=== PATIENT | female | born 1945 | race Hispanic/Latino ===

== ENCOUNTER → 2018-05-01 | Outpatient (CLI) | payer OTHER ==
[~2018-05-01] MED LIST: AMLO5TAB5 PO; ASPI-1197 PO; BACL10TA PO; CA C1TAB95 PO; CANA1TAB4 PO; CETI10TA86 PO; GABA-531 PO; GLIM4TAB3 PO; LOSA50TA25 PO; MELO7.5O PO; METF-446 PO; MONT10TA21 PO; SIMV40TA59 PO; SITA100T12 PO; VITA1TAB22 PO; VITAMIN B12 PO; fluticasone NASAL; iron PO
== END | disposition home or self-care (01) ==
LOC: SHCH 12:59
PROVIDERS: ATTEND Internal Medicine Cardiovascular Disease
DX: R07.9 Chest pain, unspecified (principal)
CPT/HCPCS: 93306

== ENCOUNTER → 2018-11-08 | Outpatient (CLI) | payer OTHER ==
[~2018-11-08] MED LIST changes: -LOSA50TA25 PO; +LOSA50TA64 PO
== END | disposition home or self-care (01) ==
LOC: RAH 08:23
PROVIDERS: ATTEND Internal Medicine Cardiovascular Disease
DX: R07.9 Chest pain, unspecified (principal)
CPT/HCPCS: 93015; 93017

== ENCOUNTER → 2019-06-28 | Outpatient (CLI) | payer OTHER ==
[~2019-06-28] MED LIST changes: -GLIM4TAB3 PO; +GLIM4TAB36 PO
== END | disposition home or self-care (01) ==
LOC: SHCH 14:30
PROVIDERS: ATTEND Internal Medicine Cardiovascular Disease
DX: I35.8 Other nonrheumatic aortic valve disorders (principal); I10 Essential (primary) hypertension
CPT/HCPCS: 93306

== ENCOUNTER → 2019-11-24 | Outpatient (CLI) | payer OTHER | END | disposition home or self-care (01) | LOC: RAH 11:19 | PROVIDERS: ATTEND Internal Medicine | DX: Z01.818 Encounter for other preprocedural examination (principal); L72.3 Sebaceous cyst; I70.0 Atherosclerosis of aorta | CPT/HCPCS: 71046 ==

== ENCOUNTER → 2020-06-15 | Outpatient (CLI) | payer OTHER | END | disposition home or self-care (01) | LOC: RAH 10:53 | PROVIDERS: ATTEND Internal Medicine | DX: M47.812 Spondylosis without myelopathy or radiculopathy, cervical region (principal); M54.2 Cervicalgia; I70.0 Atherosclerosis of aorta | CPT/HCPCS: 72040 ==

== ENCOUNTER → 2020-06-22 | Outpatient (CLI) | payer OTHER | END | disposition home or self-care (01) | LOC: RAH 13:00 | PROVIDERS: ATTEND Internal Medicine | DX: I65.23 Occlusion and stenosis of bilateral carotid arteries (principal); R09.89 Other specified symptoms and signs involving the circulatory and respiratory systems | CPT/HCPCS: 93880 ==

== ENCOUNTER → 2020-07-12 | Outpatient (CLI) | payer OTHER | END | disposition home or self-care (01) | LOC: RAH 09:03 | PROVIDERS: ATTEND Internal Medicine Gastroenterology | DX: K76.0 Fatty (change of) liver, not elsewhere classified (principal); N28.1 Cyst of kidney, acquired | CPT/HCPCS: 76700 ==

== ENCOUNTER → 2020-08-10 | Outpatient (CLI) | payer OTHER | END | disposition home or self-care (01) | LOC: SHCH 13:18 | PROVIDERS: ATTEND Internal Medicine Cardiovascular Disease | DX: I87.2 Venous insufficiency (chronic) (peripheral) (principal) | CPT/HCPCS: 93970 ==

== ENCOUNTER → 2021-05-27 | Outpatient (CLI) | payer OTHER ==
[~2021-05-27] MED LIST changes: -CETI10TA86 PO; +CETI10TA87 PO
== END | disposition home or self-care (01) ==
LOC: SHCH 08:45
PROVIDERS: ATTEND Internal Medicine Cardiovascular Disease
DX: I35.0 Nonrheumatic aortic (valve) stenosis (principal); I51.7 Cardiomegaly; E78.5 Hyperlipidemia, unspecified; E11.9 Type 2 diabetes mellitus without complications; R55 Syncope and collapse
CPT/HCPCS: 93306; 93356

== ENCOUNTER → 2022-04-17 | Outpatient (CLI) | payer OTHER | END | disposition home or self-care (01) | LOC: RAH 08:40 | PROVIDERS: ATTEND Internal Medicine Gastroenterology | DX: K21.9 Gastro-esophageal reflux disease without esophagitis (principal); R12 Heartburn | CPT/HCPCS: 74240 ==

== ENCOUNTER 2022-05-06 21:18 | Emergency (ER) | payer OTHER ==
[~2022-05-06] VITALS: Ht 160 cm; Wt 59.9 kg
[2022-05-06 21:20] VITALS: BP 135/66
[2022-05-06] MEDS ORDERED: IBUP-1493 PO (21:43)
== END 2022-05-06 22:23 | disposition home or self-care (01) ==
LOC: EDH 21:18
DX: M19.09 Primary osteoarthritis, other specified site (principal); E11.9 Type 2 diabetes mellitus without complications; E78.00 Pure hypercholesterolemia, unspecified; I10 Essential (primary) hypertension; Z79.82 Long term (current) use of aspirin; Z79.899 Other long term (current) drug therapy; Z79.84 Long term (current) use of oral hypoglycemic drugs; Z98.890 Other specified postprocedural states

== ENCOUNTER → 2022-07-11 | Outpatient (CLI) | payer OTHER ==
[~2022-07-11] MED LIST changes: +IBUP-1493 PO
== END | disposition home or self-care (01) ==
LOC: SHCH 08:53
PROVIDERS: ATTEND Internal Medicine Cardiovascular Disease
DX: I35.0 Nonrheumatic aortic (valve) stenosis (principal); I11.9 Hypertensive heart disease without heart failure
CPT/HCPCS: 93306

== ENCOUNTER → 2022-07-20 | Outpatient (CLI) | payer OTHER | END | disposition home or self-care (01) | LOC: RAH 12:04 | PROVIDERS: ATTEND Clinical Nurse Specialist Family Health | DX: M17.12 Unilateral primary osteoarthritis, left knee (principal); M25.562 Pain in left knee; M25.551 Pain in right hip; M89.8X8 Other specified disorders of bone, other site | CPT/HCPCS: 72190; 73560 ==

== ENCOUNTER 2022-08-24 00:58 | Emergency (ER) | payer OTHER ==
[~2022-08-24] VITALS: Ht 160 cm; Wt 60.3 kg
[2022-08-24] MEDS ORDERED: DiphenhydrAMINE HCL 50 MG/ML VIAL IV STA (02:05)
[2022-08-24] MEDS ORDERED: ACETAMINOPHEN 325 MG TAB PO STA (02:05)
[2022-08-24] MEDS ORDERED: PROCHLORPERAZINE 10MG/2ML INJ IV STA (02:05)
[2022-08-24 03:30] LABS: BASOPHILS % (AUTO) 0.4 % (0.0-5.0); EOSINOPHILS % (AUTO) 2.8 % (0.0-8.0); HEMATOCRIT 39.3 % (36-48); LYMPHOCYTES % (AUTO) 44.1 % (21.0-51.0); MEAN CORPUSCULAR HGB CONC 34.1 g/dL (32.0-36.0); MEAN CORPUSCULAR VOLUME 85.1 fL (79-99); MONOCYTES % (AUTO) 7.9 % (3.0-13.0); NEUTROPHILS % (AUTO) 44.4 % (40.0-77.0); PLATELET COUNT (AUTO) 164 K/uL (130-400); RED BLOOD CELL COUNT(AUTO) 4.62 MIL/uL (4.00-5.50); RED CELL DISTRIBUTION WIDTH 12.3 % (11.0-15.5); WHITE BLOOD COUNT (AUTO) 5.7 K/uL (4.8-10.8)
[2022-08-24 03:36] LABS: APPEARANCE,URINE CLEAR (CLEAR); BILIRUBIN,URINE NEGATIVE (NEGATIVE); COLOR,URINE COLORLESS (YELLOW); GLUCOSE, URINE (UA) >=1000 mg/dL (NEGATIVE); KETONES,URINE 5 mg/dL (NEGATIVE); LEUKOCYTE ESTERASE ,URINE 250 Leu/uL (NEGATIVE); NITRATE,URINE NEGATIVE (NEGATIVE); OCCULT BLOOD,URINE NEGATIVE (NEGATIVE); PROTEIN,URINE NEGATIVE (NEGATIVE); UROBILINOGEN,URINE 0.2 mg/dL (0.2-1.0)
[2022-08-24 03:39] LABS: CREATININE 0.8 mg/dL (0.5-1.5); POTASSIUM 3.6 mmol/L (3.5-5.1)
[2022-08-24 03:42] LABS: MUCUS,URINE RARE LPF (None Seen); SQUAMOUS EPITHELIAL CELL,UR RARE /HPF (0-2)
[2022-08-24 03:44] LABS: ALBUMIN 4.1 g/dL (3.5-5.0); TOTAL PROTEIN, SERUM 7.6 g/dL (6.0-8.3)
[2022-08-24] MEDS ORDERED: CEFTRIAXONE 1G VIAL IVP STA (04:52)
[2022-08-24] MEDS ORDERED: CEPH500B PO (05:40)
[2022-08-24 06:18] VITALS: BP 139/71
== END 2022-08-24 06:32 | disposition home or self-care (01) ==
LOC: EDH 00:58
DX: N39.0 Urinary tract infection, site not specified (principal); E11.9 Type 2 diabetes mellitus without complications; E78.00 Pure hypercholesterolemia, unspecified; I10 Essential (primary) hypertension; Z60.2 Problems related to living alone; Z79.1 Long term (current) use of non-steroidal anti-inflammatories (NSAID); Z79.82 Long term (current) use of aspirin; Z79.84 Long term (current) use of oral hypoglycemic drugs; Z79.899 Other long term (current) drug therapy
CPT/HCPCS: 99285; 96374; 70450; 96375; 80053; 85025; 87088; 81001; 36415; J1200; J0780; J0696

== ENCOUNTER 2022-11-22 23:16 | Observation (INO) | payer OTHER ==
[~2022-11-22] VITALS: Ht 160 cm; Wt 61.2 kg
[~2022-11-22 23:16] MED LIST changes: +CEPH500B PO; +MONT-47 PO; -MONT10TA21 PO
[2022-11-23 00:23] LABS: APPEARANCE,URINE CLEAR (CLEAR); BILIRUBIN,URINE NEGATIVE (NEGATIVE); COLOR,URINE COLORLESS (YELLOW); GLUCOSE, URINE (UA) >=1000 mg/dL (NEGATIVE); KETONES,URINE 20 mg/dL (NEGATIVE); LEUKOCYTE ESTERASE ,URINE 250 Leu/uL (NEGATIVE); NITRATE,URINE NEGATIVE (NEGATIVE); OCCULT BLOOD,URINE NEGATIVE (NEGATIVE); PROTEIN,URINE NEGATIVE (NEGATIVE); UROBILINOGEN,URINE 0.2 mg/dL (0.2-1.0)
[2022-11-23 00:33] LABS: MUCUS,URINE RARE LPF (None Seen); SQUAMOUS EPITHELIAL CELL,UR RARE /HPF (0-2)
[2022-11-23 00:37] LABS: CREATININE 1.1 mg/dL (0.5-1.5); POTASSIUM 4.2 mmol/L (3.5-5.1)
[2022-11-23 00:41] LABS: ALBUMIN 3.8 g/dL (3.5-5.0)
[2022-11-23 00:46] LABS: BASOPHILS % (AUTO) 0.3 % (0.0-5.0); EOSINOPHILS % (AUTO) 0.3 % (0.0-8.0); HEMATOCRIT 32.3 % (36-48); LYMPHOCYTES % (AUTO) 16.8 % (21.0-51.0); MEAN CORPUSCULAR HEMOGLOBIN 27.8 pg (27.0-33.0); MEAN CORPUSCULAR HGB CONC 31.9 g/dL (32.0-36.0); MEAN CORPUSCULAR VOLUME 87.3 fL (79-99); MONOCYTES % (AUTO) 3.6 % (3.0-13.0); NEUTROPHILS % (AUTO) 78.6 % (40.0-77.0); PLATELET COUNT (AUTO) 212 K/uL (130-400); RED CELL DISTRIBUTION WIDTH 13.2 % (11.0-15.5); WHITE BLOOD COUNT (AUTO) 9.4 K/uL (4.8-10.8)
[2022-11-23] MEDS ORDERED: 0.9%NACL 1000ML 1,000 ML IV ONE (01:00)
[2022-11-23] MEDS ORDERED: CEFTRIAXONE 1G VIAL IVPB ONE (02:00)
[2022-11-23] MEDS ORDERED: 0.9% NACL 500ML IV.SOLN 500 ML IV ONE (02:22)
[2022-11-23] MEDS ORDERED: MORPHINE 4 MG SYG IV PRN (03:00)
[2022-11-23] MEDS ORDERED: ACETAMINOPHEN WITH CODEINE 1 TAB TAB PO PRN (03:00)
[2022-11-23] MEDS ORDERED: ACETAMINOPHEN 325 MG TAB PO PRN ×2 (03:00)
[2022-11-23] MEDS ORDERED: ONDANSETRON 4MG INJ IV PRN (03:00)
[2022-11-23] MEDS ORDERED: MAG/ALUM/SIMETH 30 ML UDCUP PO PRN (03:00)
[2022-11-23] MEDS ORDERED: CEFTRIAXONE 1G VIAL IVPB SCH ×2 (03:00→21:00)
[2022-11-23] MEDS ORDERED: 0.9%NACL 1000ML 2,000 ML IV ONE (03:00)
[2022-11-23] MEDS: 0.9%NACL 1000ML 1,000 ML IV SCH ×3 (03:13→23:00)
[2022-11-23] MEDS: INSULIN HUMULIN R 100 UNIT/ML 3ML SQ SCH ×4 (07:30→21:00)
[2022-11-23] MEDS ORDERED: ENOXAPARIN SODIUM 40 MG/0.4 ML SYRINGE SQ SCH (09:00)
[2022-11-23] MEDS: FAMOTIDINE 20MG VIAL IV SCH (09:14)
[2022-11-23 12:19] LABS: HEMATOCRIT 24.4 % (36-48); MEAN CORPUSCULAR HEMOGLOBIN 28.3 pg (27.0-33.0); MEAN CORPUSCULAR HGB CONC 32.8 g/dL (32.0-36.0); MEAN CORPUSCULAR VOLUME 86.2 fL (79-99); RED BLOOD CELL COUNT(AUTO) 2.83 MIL/uL (4.00-5.50); RED CELL DISTRIBUTION WIDTH 13.1 % (11.0-15.5); WHITE BLOOD COUNT (AUTO) 5.6 K/uL (4.8-10.8)
[2022-11-23 12:36] LABS: CREATININE 0.5 mg/dL (0.5-1.5); POTASSIUM 3.7 mmol/L (3.5-5.1)
[2022-11-23 12:46] LABS: ALBUMIN 3.1 g/dL (3.5-5.0); MAGNESIUM 1.7 mg/dL (1.80-2.40); TOTAL PROTEIN, SERUM 5.8 g/dL (6.0-8.3)
[2022-11-23 13:37] VITALS: BP 125/64
[2022-11-23 15:21] LABS: HEMATOCRIT 25.9 % (36-48); MEAN CORPUSCULAR HGB CONC 31.7 g/dL (32.0-36.0); MEAN CORPUSCULAR VOLUME 88.4 fL (79-99); RED BLOOD CELL COUNT(AUTO) 2.93 MIL/uL (4.00-5.50); RED CELL DISTRIBUTION WIDTH 13.4 % (11.0-15.5); WHITE BLOOD COUNT (AUTO) 5.5 K/uL (4.8-10.8)
[2022-11-23] MEDS ORDERED: MAGNESIUM 2GM PREMIX 50ML 50 ML IV SCH (15:30)
[2022-11-23 15:35] LABS: % IRON SATURATION 49.2 % (22-44)
[2022-11-23 16:00] VITALS: BP 116/72
[2022-11-23] MEDS ORDERED: EMPA1TAB7 PO (16:01)
[2022-11-23] MEDS ORDERED: FLUT16H EN (16:01)
[2022-11-23] MEDS ORDERED: PANT40TA54 PO (16:01)
[2022-11-23] MEDS ORDERED: SEMA1PEN3 SQ (16:01)
[2022-11-23 19:29] VITALS: BP 112/59
[2022-11-23 23:10] VITALS: BP 123/63
[2022-11-24 00:11] LABS: HEMATOCRIT 24.2 % (36-48); MEAN CORPUSCULAR HGB CONC 32.2 g/dL (32.0-36.0); MEAN CORPUSCULAR VOLUME 86.7 fL (79-99); RED BLOOD CELL COUNT(AUTO) 2.79 MIL/uL (4.00-5.50); RED CELL DISTRIBUTION WIDTH 13.4 % (11.0-15.5); WHITE BLOOD COUNT (AUTO) 4.6 K/uL (4.8-10.8)
[2022-11-24 03:33] VITALS: BP 131/63
[2022-11-24] MEDS: 0.9%NACL 1000ML 1,000 ML IV SCH (03:49)
[2022-11-24 06:25] LABS: CREATININE 0.6 mg/dL (0.5-1.5); POTASSIUM 3.4 mmol/L (3.5-5.1); TOTAL PROTEIN, SERUM 5.9 g/dL (6.0-8.3)
[2022-11-24] MEDS: INSULIN HUMULIN R 100 UNIT/ML 3ML SQ SCH (06:59)
[2022-11-24 08:00] VITALS: BP_SYST 107; BP_SYST 111; BP_SYST 119; BP_DIAS 52; BP_DIAS 55; BP_DIAS 59
[2022-11-24] MEDS ORDERED: POTASSIUM CHLORIDE 10% ELIXIR 20 MEQ/15 ML UDCUP PO PRN (08:00)
[2022-11-24] MEDS ORDERED: POTASSIUM CHLORIDE 20MEQ/100ML 100 ML IV PRN (08:00)
[2022-11-24] MEDS ORDERED: KCL 20 MEQ ERTAB PO PRN (08:00)
[2022-11-24 09:14] LABS: HEMATOCRIT 24.8 % (36-48); MEAN CORPUSCULAR HEMOGLOBIN 28.1 pg (27.0-33.0); MEAN CORPUSCULAR HGB CONC 32.7 g/dL (32.0-36.0); MEAN CORPUSCULAR VOLUME 86.1 fL (79-99); RED BLOOD CELL COUNT(AUTO) 2.88 MIL/uL (4.00-5.50); RED CELL DISTRIBUTION WIDTH 13.5 % (11.0-15.5); WHITE BLOOD COUNT (AUTO) 3.8 K/uL (4.8-10.8)
[2022-11-24] MEDS: FAMOTIDINE 20MG VIAL IV SCH (09:21)
[2022-11-24] MEDS ORDERED: CEPH500B PO (11:32)
== END 2022-11-24 12:05 | disposition home or self-care (01) ==
LOC: EDH 23:16 → EDHIP 11-23 02:38 → 3DH 11-23 13:00
PROVIDERS: ADMIT Internal Medicine; ATTEND Internal Medicine
DX: A41.9 Sepsis, unspecified organism (principal); Z20.822 Contact with and (suspected) exposure to COVID-19; N39.0 Urinary tract infection, site not specified; E86.0 Dehydration; E11.65 Type 2 diabetes mellitus with hyperglycemia; I10 Essential (primary) hypertension; E78.5 Hyperlipidemia, unspecified; K21.9 Gastro-esophageal reflux disease without esophagitis; D64.9 Anemia, unspecified; E78.00 Pure hypercholesterolemia, unspecified; Z79.4 Long term (current) use of insulin; Z90.710 Acquired absence of both cervix and uterus; Z79.899 Other long term (current) drug therapy
CPT/HCPCS: 93005 ×2; 96376 ×2; 96372; 96361 ×2; 96365; 96366; 96375; 99285; 83540; 83550; 83735; 84484; 80053 ×3; 83880; 85025; 85027 ×4; 87040 ×2; 87088; 87804 ×2; 82948 ×5; 83605 ×2; 81001; 36415 ×3; 87635; 71045; 96367; G0378 ×33; J7040; J3490 ×2; J7030; J0696 ×3; J1650; J3475

== ENCOUNTER → 2023-02-07 | Outpatient (CLI) | payer OTHER ==
[~2023-02-07] MED LIST changes: -BACL10TA PO; -CANA1TAB4 PO; +EMPA1TAB7 PO; +FLUT16H EN; -GABA-531 PO; -IBUP-1493 PO; -MELO7.5O PO; -METF-446 PO; -MONT-47 PO; +PANT40TA54 PO; +SEMA1PEN3 SQ; -SITA100T12 PO; -VITAMIN B12 PO; -fluticasone NASAL; -iron PO
== END | disposition home or self-care (01) ==
LOC: RAH 08:33
PROVIDERS: ATTEND Internal Medicine
DX: R10.2 Pelvic and perineal pain (principal); Z90.710 Acquired absence of both cervix and uterus
CPT/HCPCS: 76856

== ENCOUNTER → 2023-03-20 | Outpatient (CLI) | payer OTHER | END | disposition home or self-care (01) | LOC: RAH 12:20 | PROVIDERS: ATTEND Clinical Nurse Specialist Family Health | DX: R91.8 Other nonspecific abnormal finding of lung field (principal); M47.815 Spondylosis without myelopathy or radiculopathy, thoracolumbar region; I70.0 Atherosclerosis of aorta | CPT/HCPCS: 71046 ==

== ENCOUNTER 2023-06-19 19:31 | Emergency (ER) | payer OTHER ==
[~2023-06-19] VITALS: Ht 160 cm; Wt 59.0 kg
[2023-06-19 20:25] LABS: BASOPHILS # (AUTO) 0.02 K/uL (0.00-0.20); BASOPHILS % (AUTO) 0.3 % (0.0-5.0); EOSINOPHILS % (AUTO) 1.6 % (0.0-8.0); HEMATOCRIT 40.1 % (36-48); IMMATURE GRANULOCYTE ABSOLUTE 0.01 K/uL (0-1); LYMPHOCYTES # (AUTO) 2.6 K/uL (1.0-4.8); LYMPHOCYTES % (AUTO) 41.2 % (21.0-51.0); MEAN CORPUSCULAR HEMOGLOBIN 29.4 pg (27.0-33.0); MEAN CORPUSCULAR HGB CONC 33.9 g/dL (32.0-36.0); MEAN CORPUSCULAR VOLUME 86.8 fL (79-99); MONOCYTES # (AUTO) 0.5 K/uL (0.1-1.0); MONOCYTES % (AUTO) 7.9 % (3.0-13.0); NEUTROPHILS % (AUTO) 48.8 % (40.0-77.0); PLATELET COUNT (AUTO) 201 K/uL (130-400); RED BLOOD CELL COUNT(AUTO) 4.62 MIL/uL (4.00-5.50); RED CELL DISTRIBUTION WIDTH 13.4 % (11.0-15.5); WHITE BLOOD COUNT (AUTO) 6.2 K/uL (4.8-10.8)
[2023-06-19 20:32] LABS: ADD UA MICROSCOPIC YES; APPEARANCE,URINE CLEAR (CLEAR); BILIRUBIN,URINE NEGATIVE (NEGATIVE); COLOR,URINE COLORLESS (YELLOW); GLUCOSE, URINE (UA) >=1000 mg/dL (NEGATIVE); KETONES,URINE NEGATIVE (NEGATIVE); LEUKOCYTE ESTERASE ,URINE 25 Leu/uL (NEGATIVE); NITRATE,URINE NEGATIVE (NEGATIVE); OCCULT BLOOD,URINE NEGATIVE (NEGATIVE); PH,URINE 5.5 (5.0-8.0); PROTEIN,URINE NEGATIVE (NEGATIVE); UROBILINOGEN,URINE 0.2 mg/dL (0.2-1.0)
[2023-06-19 20:33] LABS: RBC,URINE 0-1 /HPF (0-1); SQUAMOUS EPITHELIAL CELL,UR RARE /HPF (0-2); WBC,URINE 0-1 /HPF (0-1)
[2023-06-19 20:40] LABS: CREATININE 0.8 mg/dL (0.5-1.5); POTASSIUM 3.7 mmol/L (3.5-5.1)
[2023-06-19 20:44] LABS: ALBUMIN 3.8 g/dL (3.5-5.0); BILIRUBIN,TOTAL 0.2 mg/dL (0.2-1.0); TOTAL PROTEIN, SERUM 7.7 g/dL (6.0-8.3)
[2023-06-20 01:00] VITALS: BP 129/61; PULSE 75; RESP 16; O2SAT 99
== END 2023-06-20 01:08 | disposition home or self-care (01) ==
LOC: EDH 19:31
DX: R42 Dizziness and giddiness (principal); R82.71 Bacteriuria; E11.9 Type 2 diabetes mellitus without complications; E78.00 Pure hypercholesterolemia, unspecified; I10 Essential (primary) hypertension; Z79.82 Long term (current) use of aspirin; Z79.84 Long term (current) use of oral hypoglycemic drugs; Z79.899 Other long term (current) drug therapy
CPT/HCPCS: 36415; 70450; 80053; 81001; 84484; 85025; 93005

== ENCOUNTER → 2023-07-10 | Outpatient (CLI) | payer OTHER | END | disposition home or self-care (01) | LOC: RAH 09:12 | PROVIDERS: ATTEND Internal Medicine | DX: N63.20 Unspecified lump in the left breast, unspecified quadrant (principal); N64.4 Mastodynia; R92.30 Dense breasts, unspecified; S20.212S Contusion of left front wall of thorax, sequela; X58.XXXS Exposure to other specified factors, sequela | CPT/HCPCS: 76641; 77066 ==

== ENCOUNTER → 2023-07-12 | Outpatient (CLI) | payer OTHER | END | disposition home or self-care (01) | LOC: RAH 14:29 | PROVIDERS: ATTEND Internal Medicine | DX: I65.23 Occlusion and stenosis of bilateral carotid arteries (principal) | CPT/HCPCS: 93880 ==

== ENCOUNTER 2023-08-09 23:27 | Emergency (ER) | payer OTHER ==
[~2023-08-09] VITALS: Ht 160 cm; Wt 58.1 kg
[2023-08-09 23:50] LABS: BASOPHILS # (AUTO) 0.02 K/uL (0.00-0.20); BASOPHILS % (AUTO) 0.4 % (0.0-5.0); EOSINOPHILS # (AUTO) 0.09 K/uL (0.00-0.70); EOSINOPHILS % (AUTO) 1.9 % (0.0-8.0); HEMATOCRIT 41.4 % (36-48); IMMATURE GRANULOCYTE ABSOLUTE 0.01 K/uL (0-1); LYMPHOCYTES # (AUTO) 2.4 K/uL (1.0-4.8); LYMPHOCYTES % (AUTO) 50.6 % (21.0-51.0); MEAN CORPUSCULAR HEMOGLOBIN 29.2 pg (27.0-33.0); MEAN CORPUSCULAR HGB CONC 33.3 g/dL (32.0-36.0); MEAN CORPUSCULAR VOLUME 87.7 fL (79-99); MONOCYTES # (AUTO) 0.5 K/uL (0.1-1.0); MONOCYTES % (AUTO) 9.4 % (3.0-13.0); NEUTROPHILS # (AUTO) 1.8 K/uL (1.8-7.7); NEUTROPHILS % (AUTO) 37.5 % (40.0-77.0); PLATELET COUNT (AUTO) 173 K/uL (130-400); RED BLOOD CELL COUNT(AUTO) 4.72 MIL/uL (4.00-5.50); RED CELL DISTRIBUTION WIDTH 12.7 % (11.0-15.5); WHITE BLOOD COUNT (AUTO) 4.8 K/uL (4.8-10.8)
[2023-08-09 23:59] LABS: CREATININE 0.7 mg/dL (0.5-1.5); POTASSIUM 3.6 mmol/L (3.5-5.1)
[2023-08-10] MEDS ORDERED: FAMOTIDINE 20MG VIAL IV ONE
[2023-08-10] MEDS ORDERED: KETOROLAC 30MG VIAL (30MG/ML) IV ONE
[2023-08-10] MEDS ORDERED: ONDANSETRON 4MG INJ IVP ONE
[2023-08-10 00:03] LABS: ALBUMIN 3.8 g/dL (3.5-5.0); BILIRUBIN,TOTAL 0.2 mg/dL (0.2-1.0); TOTAL PROTEIN, SERUM 7.3 g/dL (6.0-8.3)
[2023-08-10 00:04] LABS: INR 0.94 (0.85-1.15); PROTHROMBIN TIME 10.9 SEC (9.6-11.6)
[2023-08-10 01:58] VITALS: BP 131/53; PULSE 69; RESP 16; O2SAT 94
[2023-08-10] MEDS ORDERED: FAMO-136 PO (02:19)
== END 2023-08-10 02:25 | disposition home or self-care (01) ==
LOC: EDH 23:27
DX: R07.89 Other chest pain (principal); E11.9 Type 2 diabetes mellitus without complications; E78.00 Pure hypercholesterolemia, unspecified; I10 Essential (primary) hypertension; Z79.82 Long term (current) use of aspirin; Z79.84 Long term (current) use of oral hypoglycemic drugs; Z79.899 Other long term (current) drug therapy
CPT/HCPCS: 99284; 71045; 84484 ×2; 80053; 83690; 85025; 85610; 36415; 93005; 96374; 96375; J3490; J2405; J1885

== ENCOUNTER → 2023-08-16 | Outpatient (CLI) | payer OTHER ==
[~2023-08-16] MED LIST changes: +FAMO-136 PO
== END | disposition home or self-care (01) ==
LOC: RAH 07:41
PROVIDERS: ATTEND Internal Medicine
DX: S20.212S Contusion of left front wall of thorax, sequela (principal); N64.89 Other specified disorders of breast; N64.4 Mastodynia; N63.0 Unspecified lump in unspecified breast
CPT/HCPCS: 76642

== ENCOUNTER → 2023-10-12 | Outpatient (CLI) | payer OTHER | END | disposition home or self-care (01) | LOC: SHCH 09:33 | PROVIDERS: ATTEND Internal Medicine Cardiovascular Disease | DX: I35.0 Nonrheumatic aortic (valve) stenosis (principal); I51.7 Cardiomegaly | CPT/HCPCS: 93306 ==

== ENCOUNTER → 2023-11-06 | Outpatient (CLI) | payer OTHER ==
[~2023-11-06] MED LIST changes: +VITA-427 PO; -VITA1TAB22 PO
== END | disposition home or self-care (01) ==
LOC: RAH 16:36
PROVIDERS: ATTEND Internal Medicine
DX: M79.602 Pain in left arm (principal)
CPT/HCPCS: 73060

== ENCOUNTER 2023-11-12 16:49 | Emergency (ER) | payer OTHER ==
[~2023-11-12] VITALS: Ht 160 cm; Wt 58.1 kg
[2023-11-12 17:22] VITALS: BP 124/70; PULSE 89; RESP 16
[2023-11-12 17:44] LABS: BASOPHILS # (AUTO) 0.03 K/uL (0.00-0.20); BASOPHILS % (AUTO) 0.5 % (0.0-5.0); EOSINOPHILS # (AUTO) 0.13 K/uL (0.00-0.70); EOSINOPHILS % (AUTO) 2.3 % (0.0-8.0); HEMATOCRIT 26.6 % (36-48); IMMATURE GRANULOCYTE ABSOLUTE 0.03 K/uL (0-1); LYMPHOCYTES % (AUTO) 36.1 % (21.0-51.0); MEAN CORPUSCULAR HEMOGLOBIN 30.5 pg (27.0-33.0); MEAN CORPUSCULAR HGB CONC 33.8 g/dL (32.0-36.0); MEAN CORPUSCULAR VOLUME 90.2 fL (79-99); MONOCYTES # (AUTO) 0.4 K/uL (0.1-1.0); MONOCYTES % (AUTO) 7.8 % (3.0-13.0); NEUTROPHILS % (AUTO) 52.8 % (40.0-77.0); PLATELET COUNT (AUTO) 172 K/uL (130-400); RED BLOOD CELL COUNT(AUTO) 2.95 MIL/uL (4.00-5.50); RED CELL DISTRIBUTION WIDTH 13.4 % (11.0-15.5); WHITE BLOOD COUNT (AUTO) 5.7 K/uL (4.8-10.8)
[2023-11-12 17:56] LABS: CREATININE 0.8 mg/dL (0.5-1.0); POTASSIUM 3.6 mmol/L (3.5-5.1)
[2023-11-12 18:06] LABS: ALBUMIN 3.6 g/dL (3.5-5.0); BILIRUBIN,TOTAL 0.2 mg/dL (0.2-1.0); TOTAL PROTEIN, SERUM 6.8 g/dL (6.0-8.3)
[2023-11-12] MEDS ORDERED: PRED5TAB PO (22:08)
== END 2023-11-12 23:13 | disposition home or self-care (01) ==
LOC: EDH 16:49
DX: J06.9 Acute upper respiratory infection, unspecified (principal); E11.9 Type 2 diabetes mellitus without complications; E78.00 Pure hypercholesterolemia, unspecified; I10 Essential (primary) hypertension; Z90.49 Acquired absence of other specified parts of digestive tract
CPT/HCPCS: 36415; 70450; 71045; 80053; 82948; 84484; 85025; 87426; 93005

== ENCOUNTER → 2024-02-25 | Outpatient (CLI) | payer OTHER ==
[~2024-02-25] MED LIST changes: +PRED5TAB PO
== END | disposition home or self-care (01) ==
LOC: RAH 13:28
PROVIDERS: ATTEND Internal Medicine
DX: N64.89 Other specified disorders of breast (principal); R92.332 Mammographic heterogeneous density, left breast; N63.20 Unspecified lump in the left breast, unspecified quadrant; N64.4 Mastodynia
CPT/HCPCS: 76641; 77066

== ENCOUNTER → 2024-02-29 | Outpatient (CLI) | payer OTHER | END | disposition home or self-care (01) | LOC: RAH 12:54 | PROVIDERS: ATTEND Internal Medicine | DX: M75.102 Unspecified rotator cuff tear or rupture of left shoulder, not specified as traumatic (principal); M19.012 Primary osteoarthritis, left shoulder; M25.512 Pain in left shoulder | CPT/HCPCS: 73221 ==

== ENCOUNTER 2024-03-09 12:21 | Inpatient (IN) | payer OTHER ==
[~2024-03-09] VITALS: Ht 160 cm; Wt 56.7 kg
[2024-03-09 13:03] LABS: BASOPHILS # (AUTO) 0.02 K/uL (0.00-0.20); BASOPHILS % (AUTO) 0.2 % (0.0-5.0); EOSINOPHILS # (AUTO) 0.01 K/uL (0.00-0.70); EOSINOPHILS % (AUTO) 0.1 % (0.0-8.0); HEMATOCRIT 23.6 % (36-48); IMMATURE GRANULOCYTE ABSOLUTE 0.04 K/uL (0-1); LYMPHOCYTES # (AUTO) 1.1 K/uL (1.0-4.8); LYMPHOCYTES % (AUTO) 10.4 % (21.0-51.0); MEAN CORPUSCULAR HEMOGLOBIN 26.5 pg (27.0-33.0); MEAN CORPUSCULAR HGB CONC 30.9 g/dL (32.0-36.0); MEAN CORPUSCULAR VOLUME 85.8 fL (79-99); MONOCYTES # (AUTO) 0.5 K/uL (0.1-1.0); MONOCYTES % (AUTO) 4.6 % (3.0-13.0); NEUTROPHILS # (AUTO) 8.8 K/uL (1.8-7.7); NEUTROPHILS % (AUTO) 84.3 % (40.0-77.0); PLATELET COUNT (AUTO) 173 K/uL (130-400); RED BLOOD CELL COUNT(AUTO) 2.75 MIL/uL (4.00-5.50); RED CELL DISTRIBUTION WIDTH 15.9 % (11.0-15.5); WHITE BLOOD COUNT (AUTO) 10.4 K/uL (4.8-10.8)
[2024-03-09 13:17] LABS: CREATININE 0.8 mg/dL (0.5-1.0); POTASSIUM 4.4 mmol/L (3.5-5.1)
[2024-03-09 13:25] LABS: B-TYPE NATRIURETIC PEPTIDE 86 pg/mL (0-100)
[2024-03-09 15:11] LABS: APPEARANCE,URINE CLEAR (CLEAR); BILIRUBIN,URINE NEGATIVE (NEGATIVE); COLOR,URINE LIGHT-YELLOW (YELLOW); GLUCOSE, URINE (UA) >=1000 mg/dL (NEGATIVE); KETONES,URINE 20 mg/dL (NEGATIVE); LEUKOCYTE ESTERASE ,URINE 25 Leu/uL (NEGATIVE); NITRATE,URINE NEGATIVE (NEGATIVE); OCCULT BLOOD,URINE NEGATIVE (NEGATIVE); PH,URINE 5.5 (5.0-8.0); UROBILINOGEN,URINE 0.2 mg/dL (0.2-1.0)
[2024-03-09 15:15] LABS: ADD UA MICROSCOPIC YES
[2024-03-09 15:16] LABS: PROTEIN,URINE NEGATIVE (NEGATIVE)
[2024-03-09 15:18] LABS: BACTERIA,URINE RARE /HPF (None Seen); MUCUS,URINE RARE LPF (None Seen); RBC,URINE 0-1 /HPF (0-1); SQUAMOUS EPITHELIAL CELL,UR RARE /HPF (0-2)
[2024-03-09] MEDS ORDERED: acetaMINOPHEN WITH coDEINE 1 TAB TAB PO PRN (16:30)
[2024-03-09] MEDS ORDERED: hydrALAZine 20MG/ML VIAL IV PRN (16:30)
[2024-03-09] MEDS ORDERED: guaiFENesin-DM 200/20MG 10ML PO PRN (16:30)
[2024-03-09] MEDS ORDERED: GLUCAGON 1MG KIT 1 MG ML IM PRN (16:30)
[2024-03-09] MEDS ORDERED: LACTULOSE 20 GM/30 ML UDCUP PO PRN (16:30)
[2024-03-09] MEDS ORDERED: DiphenhydrAMINE HCL 25 MG CAPSULE PO PRN (16:30)
[2024-03-09] MEDS ORDERED: NITROGLYCERIN 0.4 MG SL TAB SL PRN (16:30)
[2024-03-09] MEDS ORDERED: ondanSETRON 4MG INJ IV PRN (16:30)
[2024-03-09] MEDS ORDERED: DEXTROSE 50%-WATER 50 ML DISP.SYRIN IV PRN (16:30)
[2024-03-09 17:03] LABS: RETICULOCYTE % (AUTO) 4.2 % (0.42-2.23)
[2024-03-09 17:16] LABS: HEMOGLOBIN A1C 7.8 % (4.0-6.0)
[2024-03-09] MEDS: INSULIN humuLIN R 100 UNIT/ML 3ML SQ SCH (17:23)
[2024-03-09 18:00] VITALS: BP 117/54; PULSE 94; RESP 18; TEMP 98.8
[2024-03-09 18:02] LABS: % IRON SATURATION 19.8 % (22-44)
[2024-03-09 18:15] VITALS: O2SAT 97
[2024-03-09 19:00] VITALS: BP 124/53; PULSE 93; RESP 19; TEMP 98.6
[2024-03-09] MEDS: FAMOTIDINE 20MG VIAL IV SCH (20:06)
[2024-03-09] MEDS ORDERED: GLIM4TAB36 PO (20:13)
[2024-03-09] MEDS ORDERED: METF-446 PO (20:19)
[2024-03-09] MEDS ORDERED: LOSA50TA64 PO (20:19)
[2024-03-09] MEDS ORDERED: amlodipine PO (20:19)
[2024-03-09] MEDS ORDERED: FAMO20TA8 PO (20:19)
[2024-03-09] MEDS ORDERED: OMEP20CA12 PO (20:19)
[2024-03-09] MEDS ORDERED: SIMV-46 PO (20:19)
[2024-03-09] MEDS ORDERED: FERS325 PO (20:19)
[2024-03-09] MEDS ORDERED: AEC81 PO (20:20)
[2024-03-09] MEDS: acetaMINOPHEN 325 MG TAB PO PRN (21:55)
[2024-03-09 23:00] VITALS: BP 140/71; PULSE 90; RESP 18; TEMP 98.6
[2024-03-10] VITALS (7 sets, daily range): BP systolic 105–134; BP diastolic 48–80; PULSE 69–98; RESP 17–20; TEMP 97.6–100; O2SAT 97
[2024-03-10 09:14] LABS: MEAN CORPUSCULAR HEMOGLOBIN 26.4 pg (27.0-33.0); MEAN CORPUSCULAR HGB CONC 31.3 g/dL (32.0-36.0); MEAN CORPUSCULAR VOLUME 84.6 fL (79-99); PLATELET COUNT (AUTO) 153 K/uL (130-400); RED BLOOD CELL COUNT(AUTO) 2.27 MIL/uL (4.00-5.50); RED CELL DISTRIBUTION WIDTH 16.6 % (11.0-15.5); WHITE BLOOD COUNT (AUTO) 4.6 K/uL (4.8-10.8)
[2024-03-10 09:24] LABS: CREATININE 0.7 mg/dL (0.5-1.0); POTASSIUM 3.7 mmol/L (3.5-5.1)
[2024-03-10 09:28] LABS: ALBUMIN 2.9 g/dL (3.5-5.0); BILIRUBIN,TOTAL 0.2 mg/dL (0.2-1.0); MAGNESIUM 1.6 mg/dL (1.80-2.40); TOTAL PROTEIN, SERUM 5.7 g/dL (6.0-8.3)
[2024-03-10 09:34] LABS: HEMATOCRIT 19.2 % (36-48)
[2024-03-10] MEDS: MAGNESIUM 2GM PREMIX 50ML 50 ML IV PRN (15:17)
[2024-03-10 19:31] LABS: BASOPHILS # (AUTO) 0.03 K/uL (0.00-0.20); BASOPHILS % (AUTO) 0.6 % (0.0-5.0); EOSINOPHILS # (AUTO) 0.08 K/uL (0.00-0.70); EOSINOPHILS % (AUTO) 1.5 % (0.0-8.0); HEMATOCRIT 22.9 % (36-48); IMMATURE GRANULOCYTE ABSOLUTE 0.02 K/uL (0-1); LYMPHOCYTES # (AUTO) 2.2 K/uL (1.0-4.8); LYMPHOCYTES % (AUTO) 42.3 % (21.0-51.0); MEAN CORPUSCULAR HEMOGLOBIN 27.4 pg (27.0-33.0); MEAN CORPUSCULAR HGB CONC 32.3 g/dL (32.0-36.0); MEAN CORPUSCULAR VOLUME 84.8 fL (79-99); MONOCYTES # (AUTO) 0.4 K/uL (0.1-1.0); MONOCYTES % (AUTO) 8.1 % (3.0-13.0); NEUTROPHILS # (AUTO) 2.5 K/uL (1.8-7.7); NEUTROPHILS % (AUTO) 47.1 % (40.0-77.0); PLATELET COUNT (AUTO) 157 K/uL (130-400); WHITE BLOOD COUNT (AUTO) 5.2 K/uL (4.8-10.8)
[2024-03-10] MEDS: simVASTatin 20 MG TABLET PO SCH (21:33)
[2024-03-10] MEDS: metFORmin HCL 500 MG TABLET PO SCH (21:33)
[2024-03-11] VITALS (7 sets, daily range): BP systolic 108–137; BP diastolic 56–62; PULSE 79–84; RESP 16–18; TEMP 97.6–98.9; O2SAT 96–97
[2024-03-11] MEDS: LoSARTan 50 MG TABLET PO SCH (11:47)
[2024-03-11] MEDS: FERROUS SULFATE 325 MG TABLET.DR PO SCH (11:47)
[2024-03-11] MEDS: PANTOPrazole 40 MG TAB DR PO SCH (11:48)
[2024-03-11] MEDS: GLIMEPIRIDE 2 MG TABLET PO SCH (11:48)
[2024-03-11] MEDS: MAG/ALUM/SIMETH 30 ML UDCUP PO PRN (21:51)
[2024-03-12] VITALS (23 sets, daily range): BP systolic 93–155; BP diastolic 49–78; PULSE 76–89; RESP 14–20; TEMP 98.1–99.8; O2SAT 97–99
[2024-03-12 05:04] LABS: BASOPHILS # (AUTO) 0.01 K/uL (0.00-0.20); BASOPHILS % (AUTO) 0.2 % (0.0-5.0); EOSINOPHILS # (AUTO) 0.14 K/uL (0.00-0.70); EOSINOPHILS % (AUTO) 3.1 % (0.0-8.0); HEMATOCRIT 23.9 % (36-48); IMMATURE GRANULOCYTE ABSOLUTE 0.02 K/uL (0-1); LYMPHOCYTES % (AUTO) 45.8 % (21.0-51.0); MEAN CORPUSCULAR HEMOGLOBIN 27.5 pg (27.0-33.0); MEAN CORPUSCULAR HGB CONC 32.2 g/dL (32.0-36.0); MEAN CORPUSCULAR VOLUME 85.4 fL (79-99); MONOCYTES # (AUTO) 0.4 K/uL (0.1-1.0); MONOCYTES % (AUTO) 8.1 % (3.0-13.0); NEUTROPHILS # (AUTO) 1.9 K/uL (1.8-7.7); NEUTROPHILS % (AUTO) 42.4 % (40.0-77.0); PLATELET COUNT (AUTO) 182 K/uL (130-400); WHITE BLOOD COUNT (AUTO) 4.5 K/uL (4.8-10.8)
[2024-03-12 05:09] LABS: CREATININE 0.7 mg/dL (0.5-1.0); POTASSIUM 3.8 mmol/L (3.5-5.1)
[2024-03-12] MEDS ORDERED: proPOFol 10 MG/ML 20ML VIAL IV ONE (10:39)
[2024-03-12] MEDS: PEG 3350/NA SULF,BICARB,CL/KCL 4000 ML SOLN PO ONE (18:27)
[2024-03-13] VITALS (24 sets, daily range): BP systolic 103–141; BP diastolic 46–68; PULSE 72–82; RESP 15–20; TEMP 97.1–98.6; O2SAT 97–99
[2024-03-13 04:16] LABS: BASOPHILS # (AUTO) 0.01 K/uL (0.00-0.20); BASOPHILS % (AUTO) 0.2 % (0.0-5.0); EOSINOPHILS # (AUTO) 0.12 K/uL (0.00-0.70); EOSINOPHILS % (AUTO) 2.7 % (0.0-8.0); HEMATOCRIT 23.3 % (36-48); IMMATURE GRANULOCYTE ABSOLUTE 0.01 K/uL (0-1); LYMPHOCYTES # (AUTO) 1.7 K/uL (1.0-4.8); LYMPHOCYTES % (AUTO) 37.5 % (21.0-51.0); MEAN CORPUSCULAR HEMOGLOBIN 27.1 pg (27.0-33.0); MEAN CORPUSCULAR HGB CONC 31.8 g/dL (32.0-36.0); MEAN CORPUSCULAR VOLUME 85.3 fL (79-99); MONOCYTES # (AUTO) 0.3 K/uL (0.1-1.0); MONOCYTES % (AUTO) 7.2 % (3.0-13.0); NEUTROPHILS # (AUTO) 2.3 K/uL (1.8-7.7); NEUTROPHILS % (AUTO) 52.2 % (40.0-77.0); PLATELET COUNT (AUTO) 182 K/uL (130-400); RED BLOOD CELL COUNT(AUTO) 2.73 MIL/uL (4.00-5.50); RED CELL DISTRIBUTION WIDTH 16.3 % (11.0-15.5); WHITE BLOOD COUNT (AUTO) 4.5 K/uL (4.8-10.8)
[2024-03-13 04:35] LABS: BILIRUBIN,TOTAL 0.3 mg/dL (0.2-1.0); CREATININE 0.6 mg/dL (0.5-1.0); MAGNESIUM 1.9 mg/dL (1.80-2.40); POTASSIUM 3.3 mmol/L (3.5-5.1); TOTAL PROTEIN, SERUM 5.9 g/dL (6.0-8.3)
[2024-03-13] MEDS ORDERED: PoTASSium chl 10% ELIXIR 20MEQ 20 MEQ/15 ML UDCUP PO PRN (07:30)
[2024-03-13] MEDS ORDERED: PoTASSium chloRIDE 20MEQ/100ML 100 ML IV PRN ×2 (07:30)
[2024-03-13] MEDS: PoTASSium chloRIDE 20MEQ ER 20 MEQ ERTAB PO ONE (08:51)
[2024-03-13] MEDS ORDERED: proPOFol 10 MG/ML 20ML VIAL IV ONE (10:39)
[2024-03-14] VITALS: BP 102/42; PULSE 81; RESP 16; TEMP 99.1
[2024-03-14 04:00] VITALS: BP 118/64; PULSE 78; RESP 19; TEMP 99.1
[2024-03-14 04:11] LABS: BASOPHILS # (AUTO) 0.02 K/uL (0.00-0.20); BASOPHILS % (AUTO) 0.5 % (0.0-5.0); EOSINOPHILS # (AUTO) 0.12 K/uL (0.00-0.70); HEMATOCRIT 24.3 % (36-48); IMMATURE GRANULOCYTE ABSOLUTE 0.01 K/uL (0-1); LYMPHOCYTES # (AUTO) 1.7 K/uL (1.0-4.8); MEAN CORPUSCULAR HGB CONC 32.9 g/dL (32.0-36.0); MONOCYTES # (AUTO) 0.4 K/uL (0.1-1.0); MONOCYTES % (AUTO) 8.8 % (3.0-13.0); NEUTROPHILS # (AUTO) 1.8 K/uL (1.8-7.7); NEUTROPHILS % (AUTO) 44.4 % (40.0-77.0); PLATELET COUNT (AUTO) 191 K/uL (130-400); RED BLOOD CELL COUNT(AUTO) 2.86 MIL/uL (4.00-5.50); RED CELL DISTRIBUTION WIDTH 16.3 % (11.0-15.5)
[2024-03-14 04:24] LABS: BILIRUBIN,TOTAL 0.2 mg/dL (0.2-1.0); CREATININE 0.6 mg/dL (0.5-1.0); MAGNESIUM 1.9 mg/dL (1.80-2.40); POTASSIUM 3.7 mmol/L (3.5-5.1)
[2024-03-14] MEDS: PoTASSium chloRIDE 20MEQ ER 20 MEQ ERTAB PO PRN (06:35)
[2024-03-14 08:00] VITALS: BP 127/64; PULSE 76; RESP 19; TEMP 98.1; O2SAT 97
[2024-03-14] MEDS: PoTASSium chloRIDE 20MEQ ER 20 MEQ ERTAB PO ONE (09:00)
[2024-03-14] MEDS ORDERED: AMOX1TAB16 PO (10:48)
[2024-03-14 12:00] VITALS: BP 127/66; PULSE 82; RESP 19; TEMP 97.7
== END 2024-03-14 13:44 | disposition home or self-care (01) | DRG 68 ==
LOC: EDH 12:21 → EDHIP 16:26 → 4AH 18:03
PROVIDERS: ADMIT Hospitalist; ATTEND Hospitalist
PROC: 30233N1 Transfusion of Nonautologous Red Blood Cells into Peripheral Vein, Percutaneous Approach (ICD-10-PCS; 2024-03-10)
PROC: 0DB98ZX Excision of Duodenum, Via Natural or Artificial Opening Endoscopic, Diagnostic (ICD-10-PCS; 2024-03-12)
PROC: 0DB68ZX Excision of Stomach, Via Natural or Artificial Opening Endoscopic, Diagnostic (ICD-10-PCS; 2024-03-12)
PROC: 0DBP8ZX Excision of Rectum, Via Natural or Artificial Opening Endoscopic, Diagnostic (ICD-10-PCS; principal; 2024-03-13)
DX: I65.22 Occlusion and stenosis of left carotid artery (principal); D50.9 Iron deficiency anemia, unspecified; I25.10 Atherosclerotic heart disease of native coronary artery without angina pectoris; I10 Essential (primary) hypertension; E11.65 Type 2 diabetes mellitus with hyperglycemia; E78.00 Pure hypercholesterolemia, unspecified; I35.0 Nonrheumatic aortic (valve) stenosis; K29.50 Unspecified chronic gastritis without bleeding; K62.89 Other specified diseases of anus and rectum; K44.9 Diaphragmatic hernia without obstruction or gangrene; K57.30 Diverticulosis of large intestine without perforation or abscess without bleeding; K59.00 Constipation, unspecified; Z82.49 Family history of ischemic heart disease and other diseases of the circulatory system; Z83.3 Family history of diabetes mellitus; Z90.710 Acquired absence of both cervix and uterus
CPT/HCPCS: 36415; 36430; 43239; 45380; 71045; 80048; 80053; 81001; 82270; 82550; 82607; 82728; 82948; 83036; 83735; 83880; 84484; 85025; 85027; 86850; 86900; 86901; 86923; 87086; 88305; 88312; 93005; 93306; 93880; A4606; G0378; J1815; J2704; J3475; J3490; J7030; P9016; A4215; A4221; A4222; A4223; A4615; A4620; A4663; A7002

== ENCOUNTER → 2024-04-15 | Outpatient (CLI) | payer OTHER ==
[~2024-04-15] MED LIST changes: +AEC81 PO; -AMLO5TAB5 PO; +AMOX1TAB16 PO; -ASPI-1197 PO; -CA C1TAB95 PO; -CEPH500B PO; -CETI10TA87 PO; -EMPA1TAB7 PO; -FAMO-136 PO; +FAMO20TA8 PO; +FERS325 PO; -FLUT16H EN; +METF-446 PO; +OMEP20CA12 PO; -PANT40TA54 PO; -PRED5TAB PO; -SEMA1PEN3 SQ; +SIMV-46 PO; -SIMV40TA59 PO; -VITA-427 PO; +amlodipine PO
== END | disposition home or self-care (01) ==
LOC: RAH 15:54
PROVIDERS: ATTEND Internal Medicine Gastroenterology
DX: K59.04 Chronic idiopathic constipation (principal); D50.9 Iron deficiency anemia, unspecified; M47.815 Spondylosis without myelopathy or radiculopathy, thoracolumbar region
CPT/HCPCS: 74018

== ENCOUNTER → 2024-05-19 | Outpatient (CLI) | payer OTHER ==
--- NOTE | 2024-05-19 12:50 | HMCIMG ---
CHEST 2VWS REASON: COUGH, UPPER RESP INFECTION, UNSPECIFIED COMPARISON: 03/09/2024 FINDINGS: Two views of the chest were obtained. Lungs are clear. Heart size is normal. There is no pulmonary vascular congestion. Mediastinum and bony thorax appear unremarkable. IMPRESSION: Normal two view chest x-ray.
== END | disposition home or self-care (01) ==
LOC: RAH 12:22
PROVIDERS: ATTEND Internal Medicine
DX: J06.9 Acute upper respiratory infection, unspecified (principal); R05.9 Cough, unspecified
CPT/HCPCS: 71046

== ENCOUNTER 2024-05-26 05:52 | Day surgery (SDC) | payer OTHER ==
[2024-05-22 12:11] VITALS: BP 127/55; PULSE 83; RESP 16; TEMP 98.6
[2024-05-22 12:25] LABS: BASOPHILS # (AUTO) 0.03 K/uL (0.00-0.20); BASOPHILS % (AUTO) 0.4 % (0.0-5.0); EOSINOPHILS # (AUTO) 0.13 K/uL (0.00-0.70); EOSINOPHILS % (AUTO) 1.7 % (0.0-8.0); HEMATOCRIT 39.2 % (36-48); IMMATURE GRANULOCYTE ABSOLUTE 0.04 K/uL (0-1); LYMPHOCYTES # (AUTO) 2.9 K/uL (1.0-4.8); MEAN CORPUSCULAR HEMOGLOBIN 26.5 pg (27.0-33.0); MEAN CORPUSCULAR HGB CONC 31.6 g/dL (32.0-36.0); MEAN CORPUSCULAR VOLUME 83.8 fL (79-99); MONOCYTES # (AUTO) 0.6 K/uL (0.1-1.0); MONOCYTES % (AUTO) 7.9 % (3.0-13.0); NEUTROPHILS # (AUTO) 3.9 K/uL (1.8-7.7); NEUTROPHILS % (AUTO) 51.5 % (40.0-77.0); PLATELET COUNT (AUTO) 205 K/uL (130-400); RED BLOOD CELL COUNT(AUTO) 4.68 MIL/uL (4.00-5.50); RED CELL DISTRIBUTION WIDTH 15.3 % (11.0-15.5); WHITE BLOOD COUNT (AUTO) 7.5 K/uL (4.8-10.8)
[2024-05-22 12:38] LABS: INR 1.02 (0.85-1.15)
[2024-05-22 12:39] LABS: CREATININE 0.9 mg/dL (0.5-1.0); PARTIAL THROMBOPLASTIN TIME 25.8 SEC (26.3-35.5); POTASSIUM 3.6 mmol/L (3.5-5.1)
--- NOTE | 2024-05-23 07:53 | EKG ---
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
[~2024-05-26] VITALS: Ht 160 cm; Wt 56.2 kg
[2024-05-26] VITALS (14 sets, daily range): BP systolic 105–170; BP diastolic 45–72; PULSE 74–84; RESP 12–20; TEMP 97.4–98.1
[~2024-05-26 05:52] MED LIST changes: -AEC81 PO; -AMOX1TAB16 PO; +EMPA1TAB7 PO; -METF-446 PO
[2024-05-26] MEDS: 0.9%NACL 1000ML 1,000 ML IV ONE (06:33)
[2024-05-26] MEDS ORDERED: IOHEXOL 350 MG/ML 100ML INFUS..BTL IV ONE ×3 (07:14→14:14)
[2024-05-26] MEDS ORDERED: LIDOCAINE HCL 400MG/20ML VIAL ONE (07:14)
[2024-05-26] MEDS ORDERED: HEParin-NS 1,000 UNIT/500 ML 1,000 ML IV ONE (07:14)
[2024-05-26] MEDS ORDERED: NITROGLYCERIN 50MG VIAL ONE (07:15)
[2024-05-26] MEDS ORDERED: BIVALIRUDIN 250 MG/VIAL IV ONE (07:33)
[2024-05-26] MEDS ORDERED: HEParin 10,000 UNIT/10ML (1,000 UNIT/ML) VIAL ONE (07:33)
[2024-05-26] MEDS ORDERED: MIDAZOLAM HCL 1 MG/ML 2ML VIAL ONE (07:41)
[2024-05-26] MEDS ORDERED: FENTanyl CITRate PF 50 MCG/1 ML 2ML VIAL ONE (07:41)
--- NOTE | 2024-05-26 08:16 | PRN ---
Left Heart Cath-Rex PROCEDURE: 1. Right common femoral arterial sheath placement. 2. Selective coronary angiogram. 3. Left heart catheterization. 4. Left ventriculogram. 5. Right heart catheterization 6. Right common femoral vein sheath placement 7 [place]arag[place] INDICATIONS: Symptomatic aortic stenosis DESCRIPTION OF PROCEDURE: The patient was brought to the catheterization suite and prepped and draped in sterile fashion. An IV was started, if not already in place and both groins were exposed for arterial access. 1% lidocaine was used for local anesthesia and then a micropuncture kit was used to gain access and once free-flowing blood was seen, modified Seldinger technique was utilized to place a 6 [place]ar[place] sheath into the right common femoral artery. Same method was utilized to place a 7 [place] sheath in the right common femoral vein. Next, preformed JL4 and JR4 Catheters were then used to selectively engage the belkofski coronary vessels and multiple hand contrast injections were performed in different views to define the coronary anatomy. Next, a 6 [place]uan angled pigtail catheter was used to cross the aortic valve. Pressure measurements were obtained. Simultaneous pulmonary capillary wedge and left heart catheterization pressures were measured. Next pullback method was performed after left ventriculogram was done. Next, pullback method was performed. At the end of the case, sheath was pulled and a Perclose device was used for closure of arteriotomy site and a Vascade closure system was used for closure of the venous site. No complications occurred. FINDINGS: The left main artery bifurcates into the LAD and left circumflex and is free of stenosis. The left anterior descending artery and its diagonal branch system are free of any significant stenosis. The left circumflex artery and its obtuse marginal branch system are free of any significant stenosis. The right coronary artery is a dominant system giving rise to the RPDA and RPL and is free of any significant stenosis. Ejection fraction is greater than 70% LVEDP is normal Right heart pressures were noted to be normal Recommendations: Performed CT angio following TAVR protocol Outpatient evaluation for TAVR procedure Continue home medications No heavy lifting 5 lb or greater for 3 days DAVEY SORTO MD May 26, 2024 08:16
[2024-05-26] MEDS ORDERED: DEXTROSE 50%-WATER 50 ML DISP.SYRIN IV PRN (08:30)
[2024-05-26] MEDS ORDERED: GLUCAGON 1MG KIT 1 MG ML IM PRN (08:30)
[2024-05-26] MEDS ORDERED: 0.9%NACL 1000ML 1,000 ML IV SCH (08:30)
[2024-05-26] MEDS ORDERED: INSULIN humuLIN R 100 UNIT/ML 3ML SQ SCH (11:30)
[2024-05-26] MEDS ORDERED: IOHEXOL-350 50ML VIAL IV ONE (14:13)
--- NOTE | 2024-05-26 14:45 | NUR ---
AMBULATION/URINARY: RETURNED FROM CT SCAN, PT AMBULATED TO BATHROOM AND VOIDED QS YELLOW COLOR URINE WITHOUT DIFFICULTY. ASSISTED BACK TO BED.
--- NOTE | 2024-05-26 15:14 | NUR ---
REPORT: HAND OFF COMMUNICATION GIVEN TO ALVINA GOODWIN RN
--- NOTE | 2024-05-27 12:02 | HMCIMG ---
CT ANGIO TAVR PROTOCOL HISTORY: Atherosclerosis COMPARISON: None TECHNIQUE: CT angiography of the chest was performed. The study was performed using angiographic technique with maximum intensity projection reconstruction images. Patient was given 150 cc of Omnipaque through intravenous route. FINDINGS: No CT evidence of filling defect is seen to suggest pulmonary embolus. No CT evidence of aortic dissection is seen. No evidence of parenchymal disease is seen. Mild coronary arterial calcifications are seen. No CT evidence of pleural effusion or pericardial effusion is seen. The heart is enlarged. No evidence of adrenal mass is seen. Degenerative changes of the spine are noted. IMPRESSION: 1. No CT evidence of acute pulmonary embolus or aortic dissection is seen. CT ANGIO TAVR PROTOCOL HISTORY: Atherosclerosis COMPARISON: None TECHNIQUE: CT angiography of the abdomen and pelvis was obtained using angiographic technique with maximum intensity projection reconstruction images. Patient was given 150 cc of Omnipaque through intravenous route. Oral contrast was not given. FINDINGS: No pleural effusion is seen bilaterally. There is no evidence of parenchymal disease or pulmonary nodule of the visualized lower lungs. Degenerative changes of the thoracolumbar spine are present. The heart is not enlarged. Gallbladder is distended. The liver, spleen, adrenal glands and pancreas are unremarkable. There is no evidence of hydronephrosis bilaterally. There are bilateral renal cysts with the largest measuring 15 mm. No evidence of renal stone is seen. Fecal material is seen in the colon. There is mild diverticulosis. There are normal size retroperitoneal and mesenteric lymph nodes. No ascites is seen. Atherosclerotic changes are present. Appendix is not well visualized. Nonspecific rectal wall thickening is seen. There is diffuse atherosclerotic disease. No evidence of abdominal aortic aneurysm is seen. The celiac, superior mesenteric and bilateral renal arteries are grossly patent. The visualized portion of the iliac and femoral arterial systems are also grossly patent. Pelvic sidewalls are symmetric bilaterally. Bladder is well distended without wall thickening. IMPRESSION: 1. There are calcified plaques diffusely consistent with atherosclerosis. No evidence of abdominal aortic aneurysm or dissection is seen. Otherwise unremarkable CT angiogram study. CT was performed with one or more following dose reduction techniques: automated exposure control, adjustment of the mA and kv according to patient's size, or use of a iterative reconstruction technique.
--- NOTE | 2024-06-01 13:00 | CARDIOLOGY ---
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 A dedicated, limited window, coronary imaging protocol was used, with single breath-hold, retrospective ECG gating, and automated arrhythmia rejection. 100 cc of low osmolar contrast agent: Omnipaque 350 was delivered via a 18-gauge IV catheter in the right antecubital fossa, using a power injector and followed by 60 cc of normal saline bolus as a chaser. Collimated images were reformatted at 0.5 mm intervals, and sent to an offline independent workstation for interpretation, using 3D anatomic reconstructions: Curved multiplanar reconstructions, maximum intensity projections, and multiplanar imaging. No metoprolol was administered prior to scanning due to low baseline heart rate. No SL nitroglycerin was given. CORONARY ARTERY DESCRIPTIONS: The coronary arteries arise in normal position. Left main coronary artery: Normal caliber vessel that bifurcates into the LAD and LCx. No stenosis. Left anterior descending coronary artery: Normal caliber vessel and gives rise to diagonal and septal branches. No stenosis. Left circumflex coronary artery: Normal caliber, nondominant and gives rise to a large OM branch. No stenosis. Right coronary artery: Large, dominant vessel giving rise to the PL and PDA branches. No stenosis. CAD-RADs: 0, absence of CAD. Nila Hung MD Cardiovascular Disease [facility] NILA HUNG MD Jun 01, 2024 13:00
== END 2024-05-26 16:20 | disposition home or self-care (01) ==
LOC: DAH 05:52
PROVIDERS: ATTEND Internal Medicine Cardiovascular Disease
DX: I35.0 Nonrheumatic aortic (valve) stenosis (principal); R53.83 Other fatigue; I87.2 Venous insufficiency (chronic) (peripheral); I83.93 Asymptomatic varicose veins of bilateral lower extremities; I21.9 Acute myocardial infarction, unspecified; I10 Essential (primary) hypertension; E78.5 Hyperlipidemia, unspecified; E11.9 Type 2 diabetes mellitus without complications; Z90.710 Acquired absence of both cervix and uterus; Z79.899 Other long term (current) drug therapy
CPT/HCPCS: 80048; 85025; 85610; 85730; 36415; 93005; 93460; 82948 ×2; 74174; 75574; C1894 ×3; C1760 ×2; J3010; J3490 ×2; J7030; J1644 ×2; J2250; Q9967 ×3; A4215; A4222; A4221; A4663; A4216; A4606; Q9965; A4223 ×3; 99156; 99157; J0583

== ENCOUNTER 2024-06-21 00:15 | Emergency (ER) | payer OTHER ==
[~2024-06-21] VITALS: Ht 160 cm; Wt 56.7 kg
--- NOTE | 2024-06-21 00:15 | NUR ---
CALLED FOR EKG
[2024-06-21 00:35] LABS: BASOPHILS # (AUTO) 0.03 K/uL (0.00-0.20); BASOPHILS % (AUTO) 0.5 % (0.0-5.0); EOSINOPHILS # (AUTO) 0.21 K/uL (0.00-0.70); EOSINOPHILS % (AUTO) 3.7 % (0.0-8.0); HEMATOCRIT 39.2 % (36-48); IMMATURE GRANULOCYTE ABSOLUTE 0.02 K/uL (0-1); LYMPHOCYTES # (AUTO) 2.6 K/uL (1.0-4.8); LYMPHOCYTES % (AUTO) 44.7 % (21.0-51.0); MEAN CORPUSCULAR HGB CONC 32.4 g/dL (32.0-36.0); MEAN CORPUSCULAR VOLUME 83.4 fL (79-99); MONOCYTES # (AUTO) 0.6 K/uL (0.1-1.0); MONOCYTES % (AUTO) 9.9 % (3.0-13.0); NEUTROPHILS # (AUTO) 2.3 K/uL (1.8-7.7); NEUTROPHILS % (AUTO) 40.9 % (40.0-77.0); PLATELET COUNT (AUTO) 147 K/uL (130-400); RED CELL DISTRIBUTION WIDTH 15.2 % (11.0-15.5); WHITE BLOOD COUNT (AUTO) 5.7 K/uL (4.8-10.8)
[2024-06-21 00:46] LABS: INR 1.01 (0.85-1.15); PROTHROMBIN TIME 10.9 SEC (9.6-11.6)
[2024-06-21 00:47] LABS: CREATININE 0.8 mg/dL (0.5-1.0); PARTIAL THROMBOPLASTIN TIME 25.6 SEC (26.3-35.5)
[2024-06-21 00:52] LABS: MAGNESIUM 1.8 mg/dL (1.80-2.40)
[2024-06-21 01:23] LABS: B-TYPE NATRIURETIC PEPTIDE 24 pg/mL (0-100)
--- NOTE | 2024-06-21 01:30 | NUR ---
UA CUP PROVIDED
--- NOTE | 2024-06-21 01:34 | NUR ---
REPORT TO KEDAR SHOOK
[2024-06-21 01:53] LABS: ADD UA MICROSCOPIC YES; APPEARANCE,URINE CLEAR (CLEAR); BILIRUBIN,URINE NEGATIVE (NEGATIVE); COLOR,URINE COLORLESS (YELLOW); GLUCOSE, URINE (UA) >=1000 mg/dL (NEGATIVE); KETONES,URINE NEGATIVE (NEGATIVE); LEUKOCYTE ESTERASE ,URINE 25 Leu/uL (NEGATIVE); NITRATE,URINE NEGATIVE (NEGATIVE); OCCULT BLOOD,URINE NEGATIVE (NEGATIVE); PH,URINE 5.5 (5.0-8.0); PROTEIN,URINE NEGATIVE (NEGATIVE); UROBILINOGEN,URINE 0.2 mg/dL (0.2-1.0)
[2024-06-21 02:04] LABS: RBC,URINE 0-1 /HPF (0-1); SQUAMOUS EPITHELIAL CELL,UR RARE /HPF (0-2)
--- NOTE | 2024-06-21 02:54 | ERN ---
General Chief Complaint: Chest Pain Stated Complaint: CHEST PAIN Time Seen by MD: 00:17 Time Seen by Midlevel: 00:17 Source: patient History of Present Illness Initial Comments Patient is a 79-year-old female with a past medical history of hypertension presenting to the emergency department with a prickling sensation over chest. Patient states the episode of chest pain happened at approximately 9:00 p.m. while she was lying down watching TV. She describes the episode as a prickling sensation over her chest. The episode resolved on its own and lasted seconds. On arrival she states her chest pain has completely resolved but wanted further evaluation. Denies any other symptoms at this time. Allergies: Coded Allergies: No Known Drug Allergies (Verified Allergy, 10/02/12) Home Meds Reported Medications Empagliflozin/Metformin HCl (Synjardy 12.5-1,000 mg Tablet) 12.5 Mg-1,000 Mg Tablet, 1 TAB PO BID 05/22/24 Simvastatin (Simvastatin) 40 Mg Tablet, 40 MG PO HS, TAB 03/09/24 Losartan Potassium (Losartan Potassium) 50 Mg Tablet, 50 MG PO DAILY, TAB 03/09/24 Famotidine (Famotidine) 20 Mg Tablet, 20 MG PO HS, TAB 03/09/24 Omeprazole (Omeprazole) 20 Mg Capsule.dr, 20 MG PO DAILY, CAP 03/09/24 Ferrous Sulfate (Ferrous Sulfate) 325 Mg (65 Mg Iron) Ectab, 325 MG PO DAILY, TAB.EC 03/09/24 [amlodipine] No Conflict Check, 2.5 MG PO DAILY 03/09/24 Glimepiride (Glimepiride) 4 Mg Tablet, 4 MG PO DAILY, TAB 03/09/24 Past Medical History Past Medical History: Diabetes-Type II, High Cholesterol, Hypertension, Other Medical History Other: " NEEDS VALVE REPLACEMENT" Past Surgical History: Hysterectomy, None Family History Family History: CAD, DM, HTN Social History Social History: Negative, Lives with family Female( History) History: Not Applicable ROS Dictation CONSTITUTIONAL: Negative except for HPI HEAD/FACE: Negative except for HPI EENT: Negative except for HPI RESPIRATORY: Negative except for HPI GASTROINTESTINAL/ABDOMINAL: Negative except for HPI GENITOURINARY: Negative except for HPI MUSCULOSKELETAL: Negative except for HPI INTEGUMENTARY: Negative except for HPI NEUROLOGICAL/PSYCH: Negative except for HPI HEMATOLOGIC/LYMPHATIC: Negative except for HPI All Systems Negative, Except as noted above. 13 point review of systems assessed and all negative except for above. Physical Exam Physical Exam Dictation Vital Signs reviewed General Appearance: Alert, oriented x 3, no acute distress, well developed, nourished. Head and Face: non-traumatic. Eyes: PERRL, pink conjunctivas, eyelid no trauma, anterior chamber with arcus senilis. Ears: Pinnas intact and no signs of trauma or erythema ear canals clear and no discharge TM no erythema Nose: No discharge, no bleeding. Oropharynx: Mouth normal, tongue pink, pharynx clear,no erythema, tonsils no exudates, no abscesses noted, mucous membrane moist Neck: Supple, non-tender, no thyromegaly, no masses, no JVD, no bruits Breast:Deferred Chest:No tenderness, no crepitus, no paradoxical movement, no retractions Lungs:Clear, well-ventilated, symmetric, no rales, no wheezing, no rhonchi, no stridor, good breath sounds bilaterally Heart: Regular rate, regular rhythm, no murmur, no gallops Vascular: no peripheral edema, Abdomen: Soft, positive bowel sounds, nondistended, no guarding, nontender, no rebound, no masses no hepatomegaly, no splenomegaly, no Macias's sign, no hernias. Rectal: Deferred Genital: Deferred Neurological: Normal speech, motor function intact, sensory function intact Musculoskeletal: Neck nontender, full range of motion, back nontender, full range of motion, Extremities: nontender, full range of motion Skin: Color pink, dry, no turgor, no rash, no lacerations, no abrasions, no contusions. Lymphatic: Deferred Results Laboratory and Microbiology Lab and Micro Result Laboratory Tests Test 06/21/24 00:27 06/21/24 01:45 White Blood Count 5.7 K/uL (4.8-10.8) Red Blood Count 4.70 MIL/uL (4.00-5.50) Hemoglobin 12.7 g/dL (12.0-16.0) Hematocrit 39.2 % (36-48) Mean Corpuscular Volume 83.4 fL (79-99) Mean Corpuscular Hemoglobin 27.0 pg (27.0-33.0) Mean Corpuscular Hemoglobin Concent 32.4 g/dL (32.0-36.0) Red Cell Distribution Width 15.2 % (11.0-15.5) Platelet Count 147 K/uL (130-400) Mean Platelet Volume 8.6 fL (7.5-10.5) Immature Granulocyte % (Auto) 0.3 % (0-1) Neutrophils (%) (Auto) 40.9 % (40.0-77.0) Lymphocytes (%) (Auto) 44.7 % (21.0-51.0) Monocytes (%) (Auto) 9.9 % (3.0-13.0) Eosinophils (%) (Auto) 3.7 % (0.0-8.0) Basophils (%) (Auto) 0.5 % (0.0-5.0) Neutrophils # (Auto) 2.3 K/uL (1.8-7.7) Lymphocytes # (Auto) 2.6 K/uL (1.0-4.8) Monocytes # (Auto) 0.6 K/uL (0.1-1.0) Eosinophils # (Auto) 0.21 K/uL (0.00-0.70) Basophils # (Auto) 0.03 K/uL (0.00-0.20) Absolute Immature Granulocyte (auto 0.02 K/uL (0-1) Nucleated Red Blood Cells 0.0 % (0.0-0.19) Prothrombin Time 10.9 SEC (9.6-11.6) Prothromb Time International Ratio 1.01 (0.85-1.15) Activated Partial Thromboplast Time 25.6 SEC (26.3-35.5) L Sodium Level 139 mmol/L (136-145) Potassium Level 4.0 mmol/L (3.5-5.1) Chloride Level 101 mmol/L (101-111) Carbon Dioxide Level 26 mmol/L (21-32) Blood Urea Nitrogen 17 mg/dL (7-18) Creatinine 0.8 mg/dL (0.5-1.0) Glomerular Filtration Rate Calc 75 mL/min (>90) Random Glucose 168 mg/dL (70-105) H Total Calcium 9.5 mg/dL (8.5-10.1) Magnesium Level 1.80 mg/dL (1.80-2.40) Total Creatine Kinase 55 U/L (21-232) # Troponin I High Sensitivity 6 ng/L (4-50) B-Type Natriuretic Peptide 24 pg/mL (0-100) Urine Color COLORLESS (YELLOW) Urine Appearance CLEAR (CLEAR) Urine pH 5.5 (5.0-8.0) Urine Specific [place] 1.007 (1.001-1.031) Urine Protein NEGATIVE mg/dL (NEGATIVE) Urine Glucose (UA) >=1000 mg/dL (NEGATIVE) H Urine Ketones NEGATIVE mg/dL (NEGATIVE) Urine Occult Blood NEGATIVE (NEGATIVE) Urine Nitrate NEGATIVE (NEGATIVE) Urine Bilirubin NEGATIVE mg/dL (NEGATIVE) Urine Urobilinogen 0.2 mg/dL (0.2-1.0) Urine Leukocyte Esterase 25 Ada/uL (NEGATIVE) H Urine RBC 0-1 /HPF (0-1) Urine WBC 2-5 /HPF (0-1) H Urine Squamous Epithelial Cells RARE /HPF (0-2) Urine Bacteria None /HPF (None Seen) Labs Reviewed?: Yes MDM MDM: Patient is a 79-year-old female with a past medical history of hypertension presenting to the emergency department with a prickling sensation over chest. Patient states the episode of chest pain happened at approximately 9:00 p.m. while she was lying down watching TV. She describes the episode as a prickling sensation over her chest. The episode resolved on its own and lasted seconds. On arrival she states her chest pain has completely resolved but wanted further evaluation. Denies any other symptoms at this time. On physical examination patient is in no acute distress. Her vital signs are stable. CBC is unremarkable. Chemistries unremarkable. Cardiac enzymes are negative. EKG does not show any evidence of a heart attack. Urinalysis does not show any evidence of infection. Chest x-ray does not show any acute abnormalities. Patient was observed in the ER for over 2 hours and has remained chest pain- free. I did offer admission for observation however patient refused and would like to be discharged home. Patient reports having a heart catheterization performed one month ago that was normal. Patient will be discharged home. Return precautions discussed Differential diagnosis: ACS, tachyarrhythmia, palpitations, anxiety, electrolyte abnormality, dehydration, anemia There are no social concerns with this patient. Prescription drug management Prescriptions will include: None Medical management and examination interpretation discussions were had by me with other qualified healthcare professionals as indicated for the patient's care. ED Course Orders Procedure Category Date Status Time B-Type Natriuretic LAB 06/21/24 Complete Peptide 00:17 Basic Metabolic Panel LAB 06/21/24 Complete 00:17 Cbc With Differential LAB 06/21/24 Complete 00:17 Creatine Kinase, Total LAB 06/21/24 Complete 00:17 Magnesium LAB 06/21/24 Complete 00:17 Troponin I High LAB 06/21/24 Complete Sensitivity 00:17 Pt And Ptt LAB 06/21/24 Complete 00:17 Urinalysis Profile LAB 06/21/24 Complete 00:17 Chest 1vw RAD 06/21/24 Taken 00:17 12 Lead Ekg Tracing- EKG 06/21/24 Logged Technical 00:22 Vital Signs Date Time Temp Pulse Resp B/P (MAP) Pulse Ox O2 Delivery O2 Flow Rate FiO2 06/21/24 02:55 98.2 75 18 146/77 96 Room Air* 0 21 06/21/24 01:52 98.1 74 16 153/63 98 Room Air* 0 21 06/21/24 00:16 97.5 71 16 141/65 99 Room Air HEART Score Response (Comments) Value History: Low suspicion (0) 0 EKG: Repolarization changes 1 Age: > 65yrs (+2) 2 Risk Factors: 1-2 risk factors (+1) 1 Initial Troponin: Normal limit (0) 0 HEART Score Risk: Mod Risk for MACE (4-6) Total 4 DX & DISP Disposition: Discharge Departure Impression: Primary Impression: Non-cardiac chest pain Condition: Stable Additional Instructions: Your blood work today is unremarkable. Your cardiac enzymes are negative. Your EKG is normal Your chest x-ray does not show any evidence of pneumonia or any other acute abnormality. You will need to follow up with your primary care doctor in 2-3 days for repeat evaluation. Return to the ER for any new or worsening symptoms Referrals: WARREN OLIVERA MD (PCP) I have reviewed the case, and I agree with, Diagnosis and Plan I performed the substantive portion of the visit. I have reviewed and personally made and approve the management plan that is documented in the note by myself or the WALTER. I acknowledge for responsibility for the patient's management plan. OLIVERIO DANIEL Jun 21, 2024 02:54
[2024-06-21 02:55] VITALS: BP 146/77; PULSE 75; RESP 18; TEMP 98.3; O2SAT 96
--- NOTE | 2024-06-21 06:31 | EKG ---
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
--- NOTE | 2024-06-21 09:12 | HMCIMG ---
Exam Type: CHEST 1VW Clinical Information: cp Comparison: None Findings: The lungs are clear of infiltrates. The heart is normal in size. The bony and soft tissue structures of the chest are unremarkable. Impression: Clear lungs.
== END 2024-06-21 03:02 | disposition home or self-care (01) ==
LOC: EDH 00:15
DX: R07.89 Other chest pain (principal); E11.9 Type 2 diabetes mellitus without complications; E78.00 Pure hypercholesterolemia, unspecified; I10 Essential (primary) hypertension; Z79.84 Long term (current) use of oral hypoglycemic drugs; Z79.899 Other long term (current) drug therapy; Z90.710 Acquired absence of both cervix and uterus
CPT/HCPCS: 36415; 71045; 80048; 81001; 82550; 83735; 83880; 84484; 85025; 85610; 85730; 93005; 99285

== ENCOUNTER 2024-09-19 18:09 | Emergency (ER) | payer OTHER ==
[~2024-09-19] VITALS: Ht 160 cm; Wt 57.2 kg
--- NOTE | 2024-09-19 18:54 | ERN ---
ED Note History of Present Illness Stated Complaint: CRAMP OR PAIN IN LOWER LEFT THIGH Chief Complaint: Lower Extremity Pain/Injury Time Seen by MD: 18:12 Time Seen by Midlevel: 18:12 Dictation: The patient is a 71-year-old female with a history of diabetes, hyperlipidemia, hypertension status post TAVR on Tuesday September 17, [address] Denny Salgado who presents to the emergency department with left posterior thigh pain and cramping. Onset an hour prior to arrival. Patient denies any trauma or falls. Denies any chest pain or shortness of breath. Allergies: Coded Allergies: No Known Drug Allergies (Verified Allergy, 10/02/12) Home Meds Reported Medications Cyanocobalamin (Vitamin B-12) (Vitamin B12) 2,500 Mcg Tablet, 1000 MCG PO DAILY, TAB 09/19/24 Omeprazole (Omeprazole) 40 Mg Capsule.dr, 40 MG PO DAILY, CAP 09/19/24 Clopidogrel Bisulfate (Clopidogrel) 75 Mg Tablet, 75 MG PO DAILY, TAB 09/19/24 Aspirin (Aspirin EC) 81 Mg Tablet.dr, 81 MG PO DAILY, TAB 09/19/24 Empagliflozin/Metformin HCl (Synjardy 12.5-1,000 mg Tablet) 12.5 Mg-1,000 Mg Tablet, 1 TAB PO BID 05/22/24 Simvastatin (Simvastatin) 40 Mg Tablet, 40 MG PO HS, TAB 03/09/24 Losartan Potassium (Losartan Potassium) 50 Mg Tablet, 50 MG PO DAILY, TAB 03/09/24 Famotidine (Famotidine) 20 Mg Tablet, 20 MG PO HS, TAB 03/09/24 Ferrous Sulfate (Ferrous Sulfate) 325 Mg (65 Mg Iron) Ectab, 325 MG PO DAILY, TAB.EC 03/09/24 [amlodipine] No Conflict Check, 2.5 MG PO DAILY 03/09/24 Glimepiride (Glimepiride) 4 Mg Tablet, 4 MG PO DAILY, TAB 03/09/24 Discontinued Reported Medications Omeprazole (Omeprazole) 20 Mg Capsule.dr, 20 MG PO DAILY, CAP 03/09/24 Past Medical History Past Medical History: Diabetes-Type II, High Cholesterol, Heart Disease, Hyp ertension, Other Additional Past Medical Hx: " NEEDS VALVE REPLACEMENT" Surgical History: Hysterectomy, None Family History: CAD, DM, HTN Social History: Negative, Lives with family History: Not Applicable RN Note Reviewed/Agreed w/PFSH: Yes Review of System Dictation Constitutional: Negative for fever,chills, and weight loss Eyes: Negative for injury, pain,redness, and discharge ENT: Negative for injury,pain or swelling Cardiovascular: Negative for chest pain, palpitations, and edema Respiratory: Negative for shortness of breath, cough, and wheezing, Abdomen/GI: Negative for abdominal pain, nausea, vomiting, diarrhea, and constipation Back: Negative for injury and pain : Negative for injury, bleeding and discharge MS/Extremity: Negative for injury and deformity positive for left upper leg pain Skin: Negative for rash, and discoloration Neuro: Negative for headache, weakness, numbness, tingling, and seizure Psych: Negative for suicide ideation, homicidal ideation, and hallucinations Initial Vital Sign VS Vital Signs Date Time Temp Pulse Resp B/P (MAP) Pulse Ox O2 Delivery O2 Flow Rate FiO2 09/19/24 18:11 98.8 84 16 129/49 97 Room Air 0 09/19/24 19:01 21 Physical Exam Dictation Vital Signs reviewed General Appearance: Alert, oriented x 3, no acute distress, well developed, nourished. Head and Face: non-traumatic. Eyes: PERRL, pink conjunctivas, eyelid no trauma, anterior chamber with arcus senilis. Ears: Pinnas intact and no signs of trauma or erythema ear canals clear and no discharge TM no erythema Nose: No discharge, no bleeding. Oropharynx: Mouth normal, tongue pink. pharynx clear,no erythema, tonsils no exudates, no abscesses noted, mucous membrane moist Neck: Supple, non-tender, no thyromegaly, no masses, no JVD, no bruits Breast:Deferred Chest:No tenderness, no crepitus, no paradoxical movement, no retractions Lungs:Clear, well-ventilated, symmetric, no rales, no wheezing, no rhonchi, no stridor, good breath sounds bilaterally Heart: Regular rate, regular rhythm, no murmur, no gallops Vascular: no peripheral edema, dorsalis pedis 3+ bilaterally Abdomen: Soft, positive bowel sounds, nondistended, no guarding, nontender, no rebound, no masses no hepatomegaly, no splenomegaly, no Macias's sign, no hernias. Rectal: Deferred Genital: Deferred Neurological: Normal speech, motor function intact, sensory function intact Musculoskeletal: Neck nontender, full range of motion, back nontender, full range of motion, Extremities: nontender, full range of motion Skin: Color pink, dry, no turgor, no rash, no lacerations, no abrasions, no contusions. No hematomas noted to bilateral groin area at surgical site. No bleeding or drainage small ecchymosis Lymphatic: Deferred Results (Laboratory/Radiology) Laboratory/Radiology Laboratory Tests Test 09/19/24 21:50 White Blood Count 6.0 K/uL (4.8-10.8) Red Blood Count 4.10 MIL/uL (4.00-5.50) Hemoglobin 11.9 g/dL (12.0-16.0) L Hematocrit 36.2 % (36-48) Mean Corpuscular Volume 88.3 fL (79-99) Mean Corpuscular Hemoglobin 29.0 pg (27.0-33.0) Mean Corpuscular Hemoglobin Concent 32.9 g/dL (32.0-36.0) Red Cell Distribution Width 12.9 % (11.0-15.5) Platelet Count 138 K/uL (130-400) Mean Platelet Volume 9.1 fL (7.5-10.5) Immature Granulocyte % (Auto) 0.2 % (0-1) Neutrophils (%) (Auto) 49.5 % (40.0-77.0) Lymphocytes (%) (Auto) 39.9 % (21.0-51.0) Monocytes (%) (Auto) 7.8 % (3.0-13.0) Eosinophils (%) (Auto) 2.3 % (0.0-8.0) Basophils (%) (Auto) 0.3 % (0.0-5.0) Neutrophils # (Auto) 3.0 K/uL (1.8-7.7) Lymphocytes # (Auto) 2.4 K/uL (1.0-4.8) Monocytes # (Auto) 0.5 K/uL (0.1-1.0) Eosinophils # (Auto) 0.14 K/uL (0.00-0.70) Basophils # (Auto) 0.02 K/uL (0.00-0.20) Absolute Immature Granulocyte (auto 0.01 K/uL (0-1) Nucleated Red Blood Cells 0.0 % (0.0-0.19) Sodium Level 137 mmol/L (136-145) Potassium Level 3.7 mmol/L (3.5-5.1) Chloride Level 104 mmol/L (101-111) Carbon Dioxide Level 25 mmol/L (21-32) Blood Urea Nitrogen 16 mg/dL (7-18) Creatinine 0.7 mg/dL (0.5-1.0) Glomerular Filtration Rate Calc 88 mL/min (>90) Random Glucose 89 mg/dL (70-105) Total Calcium 8.7 mg/dL (8.5-10.1) REASON: rule out pseudoaneurysm ORDERING PHYSICIAN: J CARLOS GRACIA PROCEDURE: SOFT GROIN - US SOFT TISSUE GROIN US SOFT TISSUE GROIN REASON: rule out pseudoaneurysm. COMPARISON: None TECHNIQUE: Left groin Doppler ultrasound study was performed. FINDINGS: No sonographic evidence of pseudoaneurysm is seen. The common femoral artery and common femoral vein are grossly patent. IMPRESSION: No sonographic evidence of pseudoaneurysm is seen. REASON: left leg pain s.p tavr ORDERING PHYSICIAN: J CARLOS GRACIA PROCEDURE: VENOUS UNI - US VENOUS DOPPLER UNILATERAL US VENOUS DOPPLER UNILATERAL HISTORY: Left leg pain COMPARISON: None TECHNIQUE: Left lower extremity venous Doppler ultrasound study was performed. FINDINGS: The left common femoral, femoral, popliteal, and posterior tibial veins are visualized. Normal flow with augmentation and compressibilities are demonstrated. Left greater saphenous vein is patent. IMPRESSION: 1. No evidence of deep venous thrombosis is seen. REASON: left leg pain s.p tavr ORDERING PHYSICIAN: J CARLOS GRACIA TECHNICAL TRAINING SPECIALIST PROCEDURE: ART U LE - US ARTERIAL UNILA LOW EXT DUPL US ARTERIAL UNILA LOW EXT DUPL HISTORY: Leg pain COMPARISON: None TECHNIQUE: Left lower extremity arterial Doppler ultrasound study was performed. FINDINGS: Biphasic arterial waveforms are noted in the left common femoral, deep femoral, superficial femoral, popliteal, posterior tibial and dorsalis pedal arteries. On the left, the peak systolic velocity of the common femoral artery is 103 cm/s, the proximal femoral artery is 106 cm/s, the mid femoral artery is 94 cm/s, the distal femoral artery is 97 cm/s, the proximal popliteal artery is 94 cm/s, the distal popliteal artery is 79 cm/s, the anterior tibial artery is 79 cm/s, the posterior tibial artery artery is 34 cm/s,and the dorsalis pedal artery is 124 cm/s. IMPRESSION: 1. Atherosclerotic disease. 2. Biphasic arterial waveforms noted of the left lower extremity artery system. Labs Reviewed?: Yes ED Course ED Course Orders Procedure Category Date Status Time Acetaminophen 325 Tab PHA 09/19/24 Complete (Tylenol 325mg Tab 18:30 Us Arterial Unila Low US 09/19/24 Resulted Ext Dupl 18:34 Us Venous Doppler US 09/19/24 Resulted Unilateral 18:34 Us Soft Tissue Groin US 09/19/24 Resulted 19:19 Cbc With Differential LAB 09/19/24 Complete 21:42 Basic Metabolic Panel LAB 09/19/24 Complete 21:42 Ct Angio Abd Aorta W CT 09/19/24 Taken Runoff 22:11 0.9% Nacl 500ml PHA 09/19/24 Complete Iv.Soln (Ns 500ml 22:30 Iohexol (Omnipaque) PHA 09/19/24 Complete 22:57 Current Medications Medications (Trade) Dose Ordered Sig/Paulina Route PRN Reason Start Time Stop Time Status Last Admin Dose Admin Acetaminophen (TYLenol 325MG TAB) 650 mg ONCE ONCE PO 09/19/24 18:30 09/19/24 18:34 DC 09/19/24 19:14 Iohexol (Omnipaque) 50 ml STK-MED ONCE IV 09/19/24 22:57 09/19/24 23:00 DC Sodium Chloride 500 ml @ 0 mls/hr ONCE ONCE IV 09/19/24 22:30 09/19/24 22:31 DC 09/19/24 22:33 Vital Signs Date Time Temp Pulse Resp B/P (MAP) Pulse Ox O2 Delivery O2 Flow Rate FiO2 09/19/24 19:27 98.6 83 18 126/52 96 Room Air* 0 21 09/19/24 19:01 98.2 92 15 151/56 97 Room Air* 0 21 09/19/24 18:11 98.8 84 16 129/49 97 Room Air 0 Medical Decision Making MDM The patient is a 71-year-old female with a history of diabetes, hyperlipidemia, hypertension status post TAVR on Tuesday September 17, [address] Denny Modi who presents to the emergency department with left posterior thigh pain and cramping. Onset an hour prior to arrival. Patient denies any trauma or falls. Denies any chest pain or shortness of breath. CBC showed no leukocytosis, mild normocytic anemia , chemistry showed no electrolyte imbalance, GFR of 88. Arterial revealed biphasic arterial waveforms noted to the left lower extremity artery systolic, mild atherosclerosis disease, ultrasound was negative for DVT, no pseudoaneurysms on ultrasound. CT angio showed mild to moderate stenosis near take all of the left artery. Bilateral iliac common femoral, deep femoral, superficial femoral, popliteal anterior tibial arteries are patent. Multifocal limiting stenosis of bilateral posterior tibial arteries. Multifocal flow-limiting stenosis of bilateral fibular arteries worse on the left. Patient will be discharged to follow up with Dr. Garcia. Patient in no acute distress. No active bleeding. Neurovascularly intact. Increased length of stay due to pending CT results. Radiologist reported malfunction in trying to send report. Differential diagnosis: DVT, pseudoaneurysm, muscle cramping Need for hospitalization: Patient does not meet criteria for hospitalization. There are no social concerns with this patient. DX & DISP Disposition: Discharge Departure Impression: Primary Impression: Left leg pain Additional Impression: Status post transcatheter aortic valve replacement Condition: Stable Additional Instructions: Please follow up with Dr. Modi as soon as possible. If symptoms worsen please return to ER. FOLLOW-UP WITH PRIMARY CARE PROVIDER IN 1 TO 2 DAYS. TAKE MEDICATIONS DIRECTED HERE IN THE EMERGENCY ROOM. OKAY TO CONTINUE HOME MEDICATIONS UNLESS OTHERWISE DISCUSSED DURING YOUR VISIT IN THE EMERGENCY ROOM TODAY. RETURN TO YOUR NEAREST EMERGENCY ROOM IF SYMPTOMS WORSEN OR IF THERE IS NO IMPROVEMENT. CALL 911 IF YOU NEED IMMEDIATE ASSISTANCE. TAKE TYLENOL OR MOTRIN [id number] NEEDED AND IF NO CONTRAINDICATIONS ARE PRESENT. INCREASE ORAL HYDRATION. A WOUND CULTURE OR URINE CULTURE WAS ORDERED HERE IN THE [facility] ROOM DEPARTMENT PLEASE FOLLOW-UP WITH PRIMARY CARE PROVIDER AND ADVISE THEM TO GET REPEAT PORTS FROM OUR FACILITY. IF YOU HAD ANY MISTY WRAP/SPLINTS THAT WERE APPLIED HERE, PLEASE DO NOT REMOVE THEM UNTIL YOU SEE YOUR PRIMARY CARE OR SPECIALTY. Referrals: WARREN OLIVERA MD (PCP) Time of Disposition: 01:08 I have reviewed the case, and I agree with, Diagnosis and Plan J CARLOS GRACIA [facility] Sep 19, 2024 18:54
[2024-09-19] MEDS ORDERED: CLOP75TA32 PO (18:59)
[2024-09-19] MEDS ORDERED: OMEP40CA21 PO (18:59)
[2024-09-19] MEDS ORDERED: CYAN250010 PO (18:59)
[2024-09-19] MEDS ORDERED: ASPI-1443 PO (18:59)
[2024-09-19] MEDS: acetaMINOPHEN 325 MG TAB PO ONE (19:14)
--- NOTE | 2024-09-19 21:11 | HMCIMG ---
US VENOUS DOPPLER UNILATERAL HISTORY: Left leg pain COMPARISON: None TECHNIQUE: Left lower extremity venous Doppler ultrasound study was performed. FINDINGS: The left common femoral, femoral, popliteal, and posterior tibial veins are visualized. Normal flow with augmentation and compressibilities are demonstrated. Left greater saphenous vein is patent. IMPRESSION: 1. No evidence of deep venous thrombosis is seen.
--- NOTE | 2024-09-19 21:22 | HMCIMG ---
US ARTERIAL UNILA LOW EXT DUPL HISTORY: Leg pain COMPARISON: None TECHNIQUE: Left lower extremity arterial Doppler ultrasound study was performed. FINDINGS: Biphasic arterial waveforms are noted in the left common femoral, deep femoral, superficial femoral, popliteal, posterior tibial and dorsalis pedal arteries. On the left, the peak systolic velocity of the common femoral artery is 103 cm/s, the proximal femoral artery is 106 cm/s, the mid femoral artery is 94 cm/s, the distal femoral artery is 97 cm/s, the proximal popliteal artery is 94 cm/s, the distal popliteal artery is 79 cm/s, the anterior tibial artery is 79 cm/s, the posterior tibial artery artery is 34 cm/s,and the dorsalis pedal artery is 124 cm/s. IMPRESSION: 1. Atherosclerotic disease. 2. Biphasic arterial waveforms noted of the left lower extremity artery system.
--- NOTE | 2024-09-19 21:35 | HMCIMG ---
US SOFT TISSUE GROIN REASON: rule out pseudoaneurysm. COMPARISON: None TECHNIQUE: Left groin Doppler ultrasound study was performed. FINDINGS: No sonographic evidence of pseudoaneurysm is seen. The common femoral artery and common femoral vein are grossly patent. IMPRESSION: No sonographic evidence of pseudoaneurysm is seen.
[2024-09-19 22:01] LABS: BASOPHILS # (AUTO) 0.02 K/uL (0.00-0.20); BASOPHILS % (AUTO) 0.3 % (0.0-5.0); EOSINOPHILS # (AUTO) 0.14 K/uL (0.00-0.70); EOSINOPHILS % (AUTO) 2.3 % (0.0-8.0); HEMATOCRIT 36.2 % (36-48); IMMATURE GRANULOCYTE ABSOLUTE 0.01 K/uL (0-1); LYMPHOCYTES # (AUTO) 2.4 K/uL (1.0-4.8); LYMPHOCYTES % (AUTO) 39.9 % (21.0-51.0); MEAN CORPUSCULAR HGB CONC 32.9 g/dL (32.0-36.0); MEAN CORPUSCULAR VOLUME 88.3 fL (79-99); MONOCYTES # (AUTO) 0.5 K/uL (0.1-1.0); MONOCYTES % (AUTO) 7.8 % (3.0-13.0); NEUTROPHILS % (AUTO) 49.5 % (40.0-77.0); PLATELET COUNT (AUTO) 138 K/uL (130-400); RED CELL DISTRIBUTION WIDTH 12.9 % (11.0-15.5)
[2024-09-19 22:08] LABS: CREATININE 0.7 mg/dL (0.5-1.0); POTASSIUM 3.7 mmol/L (3.5-5.1)
[2024-09-19] MEDS: 0.9% NACL 500ML IV.SOLN 500 ML IV ONE (22:33)
[2024-09-19] MEDS ORDERED: IOHEXOL-350 50ML VIAL IV ONE (22:57)
[2024-09-20 01:20] VITALS: BP 120/45; PULSE 75; RESP 18; TEMP 98.6; O2SAT 98
--- NOTE | 2024-09-20 08:33 | HMCIMG ---
Exam Type: CT angiogram abdomen and pelvis and lower extremities run-off with contrast Exam Type: CT ANGIO ABD AORTA W RUNOFF Clinical Information: left leg pain s/p tavr Comparison: None Technique: Routine helical scanning at 5mm collimation through the abdomen and pelvis after contrast administration. In addition, sagittal and coronary formations of the abdomen pelvis and surface rendering three-dimensional reconstructions of the abdominal aorta and the bilateral lower extremity arterial system were performed. Findings: There is atheromatous plaque of the aorta, common iliac arteries, superficial femoral arteries as well as the popliteal arteries. However, there is no evidence of actual occlusion at any level and both runoffs appear preserved. There is no aortic aneurysm. There is no occlusion. There is no dissection. There is no extravasation to suggest laceration or rupture. No evidence of nephro or ureterolithiasis is found. No hydronephrosis or ureteral dilatation is seen. The visualized portion of the stomach is unremarkable. It shows no wall thickening. No gross ulceration is seen. It is not overly distended. There are no surrounding inflammatory changes. No wall lesions are identified to suggest cancer. The visualized portion of the spleen is unremarkable. It is not enlarged. The pancreas shows normal anatomy. It is not fatty replaced. It shows no lesions. The pancreatic duct is not dilated. The gallbladder is unremarkable. It shows no cholelithiasis. The gallbladder wall is normal in thickness. There is no pericholecystic fluid. The is no acute or chronic inflammation noted. The adrenal glands are unremarkable. There is no enlargement. No lesions are noted. The visualized portion of the liver is unremarkable. It shows no focal masses. The appendix is unremarkable. It shows no evidence of inflammation. No appendicolith is seen. The small bowel is unremarkable. There is no evidence of dilatation to suggest obstruction. No evidence of adynamic ileus is seen. There is no small bowel wall thickening to suggest enteritis. The colon is unremarkable. The urinary bladder is unremarkable. There is no wall thickening to suggest tumor or inflammation. There are no intraluminal calculi. There are no diverticula. There is no evidence of chronic bladder outlet obstruction. There is no evidence of urinary bladder distention to suggest urinary retention. The other pelvic structures are unremarkable. The bony and vascular structures are unremarkable for the patient's age. IMPRESSION: 1. No significant vascular occlusions identified. This study was performed using dose reduction techniques to include automated exposure control and/or adjustment of the mA and/or kV according to patient size.
== END 2024-09-20 01:21 | disposition home or self-care (01) ==
LOC: EDH 18:09
DX: M79.652 Pain in left thigh (principal); E11.9 Type 2 diabetes mellitus without complications; E78.00 Pure hypercholesterolemia, unspecified; I11.9 Hypertensive heart disease without heart failure; Z79.02 Long term (current) use of antithrombotics/antiplatelets; Z79.82 Long term (current) use of aspirin; Z79.84 Long term (current) use of oral hypoglycemic drugs; Z79.899 Other long term (current) drug therapy; Z90.710 Acquired absence of both cervix and uterus; Z95.2 Presence of prosthetic heart valve
CPT/HCPCS: 99285; 75635; 93971; 93926; 80048; 85025; 36415; 76882; J7040; Q9967

== ENCOUNTER 2024-10-21 19:50 | Emergency (ER) | payer OTHER ==
[~2024-10-21] VITALS: Ht 160 cm; Wt 56.7 kg
[~2024-10-21 19:50] MED LIST changes: +ASPI-1443 PO; +CLOP75TA32 PO; +CYAN250010 PO; -OMEP20CA12 PO; +OMEP40CA21 PO
[2024-10-21] MEDS: 0.9%NACL 1000ML 1,000 ML IV ONE (20:22)
[2024-10-21 20:30] LABS: BASOPHILS # (AUTO) 0.01 K/uL (0.00-0.20); BASOPHILS % (AUTO) 0.2 % (0.0-5.0); EOSINOPHILS # (AUTO) 0.09 K/uL (0.00-0.70); EOSINOPHILS % (AUTO) 1.9 % (0.0-8.0); IMMATURE GRANULOCYTE ABSOLUTE 0.01 K/uL (0-1); LYMPHOCYTES # (AUTO) 1.6 K/uL (1.0-4.8); LYMPHOCYTES % (AUTO) 32.7 % (21.0-51.0); MEAN CORPUSCULAR HEMOGLOBIN 29.3 pg (27.0-33.0); MEAN CORPUSCULAR HGB CONC 33.1 g/dL (32.0-36.0); MEAN CORPUSCULAR VOLUME 88.4 fL (79-99); MONOCYTES # (AUTO) 0.4 K/uL (0.1-1.0); MONOCYTES % (AUTO) 8.2 % (3.0-13.0); NEUTROPHILS # (AUTO) 2.7 K/uL (1.8-7.7); NEUTROPHILS % (AUTO) 56.8 % (40.0-77.0); PLATELET COUNT (AUTO) 156 K/uL (130-400); RED BLOOD CELL COUNT(AUTO) 4.41 MIL/uL (4.00-5.50); RED CELL DISTRIBUTION WIDTH 12.3 % (11.0-15.5); WHITE BLOOD COUNT (AUTO) 4.7 K/uL (4.8-10.8)
[2024-10-21 20:37] LABS: CREATININE 0.8 mg/dL (0.5-1.0); POTASSIUM 3.6 mmol/L (3.5-5.1)
--- NOTE | 2024-10-21 20:43 | HMCIMG ---
CT HEAD/BRAIN W/O CONTRAST HISTORY: Headaches COMPARISON: None TECHNIQUE: Multiple sequential axial images of the head were obtained from the base of the skull through vertex. Patient was not given contrast through intravenous route. FINDINGS: The ventricles and extraventricular CSF spaces are dilated consistent with cerebral atrophy. Nonspecific white matter changes seen. There are bilateral basal ganglia calcification There is no midline shift, mass effect or herniation. No acute intracranial bleed is seen. Visualized portion of the paranasal sinuses are grossly within normal limits. IMPRESSION: 1. No acute intracranial bleed is seen. 2. Atrophy with white matter changes. CT was performed with one or more following dose reduction techniques: automated exposure control, adjustment of the mA and kv according to patient's size, or use of a iterative reconstruction technique.
--- NOTE | 2024-10-21 21:03 | ERN ---
ED Note History of Present Illness Stated Complaint: C/O HEADACHE AFTER DENTAL WORK TODAY Chief Complaint: Headache Time Seen by MD: 19:53 Time Seen by Midlevel: 19:53 Dictation: The patient is a 79-year-old female with a history of diabetes hypertension who presents to the emergency department with complaints of left-sided headache onset this morning around 10:00 a.m.. Patient denies any trauma, denies any nausea or vomiting or diarrhea, denies any fevers. Denies visual changes or dizziness Patient reports she takes Plavix and aspirin at home. Reports that she was doing some dental cleaning today and thinks that is what aggravated her headache. Allergies: Coded Allergies: No Known Drug Allergies (Verified Allergy, 10/02/12) Home Meds Reported Medications Cyanocobalamin (Vitamin B-12) (Vitamin B12) 2,500 Mcg Tablet, 1000 MCG PO DAILY, TAB 09/19/24 Omeprazole (Omeprazole) 40 Mg Capsule.dr, 40 MG PO DAILY, CAP 09/19/24 Clopidogrel Bisulfate (Clopidogrel) 75 Mg Tablet, 75 MG PO DAILY, TAB 09/19/24 Aspirin (Aspirin EC) 81 Mg Tablet.dr, 81 MG PO DAILY, TAB 09/19/24 Empagliflozin/Metformin HCl (Synjardy 12.5-1,000 mg Tablet) 12.5 Mg-1,000 Mg Tablet, 1 TAB PO BID 05/22/24 Simvastatin (Simvastatin) 40 Mg Tablet, 40 MG PO HS, TAB 03/09/24 Losartan Potassium (Losartan Potassium) 50 Mg Tablet, 50 MG PO DAILY, TAB 03/09/24 Famotidine (Famotidine) 20 Mg Tablet, 20 MG PO HS, TAB 03/09/24 Ferrous Sulfate (Ferrous Sulfate) 325 Mg (65 Mg Iron) Ectab, 325 MG PO DAILY, TAB.EC 03/09/24 [amlodipine] No Conflict Check, 2.5 MG PO DAILY 03/09/24 Glimepiride (Glimepiride) 4 Mg Tablet, 4 MG PO DAILY, TAB 03/09/24 Past Medical History Past Medical History: Diabetes-Type II, High Cholesterol, Hypertension Additional Past Medical Hx: " NEEDS VALVE REPLACEMENT" Surgical History: Other Surgical History Other: VALVE REPLACEMENT Family History: CAD, DM, HTN Social History: Negative, Lives with family History: Not Applicable RN Note Reviewed/Agreed w/PFSH: Yes Review of System Dictation Constitutional: Negative for fever,chills, and weight loss Eyes: Negative for injury, pain,redness, and discharge ENT: Negative for injury,pain or swelling Cardiovascular: Negative for chest pain, palpitations, and edema Respiratory: Negative for shortness of breath, cough, and wheezing, Abdomen/GI: Negative for abdominal pain, nausea, vomiting, diarrhea, and constipation Back: Negative for injury and pain : Negative for injury, bleeding and discharge MS/Extremity: Negative for injury and deformity Skin: Negative for rash, and discoloration Neuro: Negative for weakness, numbness, tingling, and seizure positive for headache Psych: Negative for suicide ideation, homicidal ideation, and hallucinations Initial Vital Sign VS Vital Signs Date Time Temp Pulse Resp B/P (MAP) Pulse Ox O2 Delivery O2 Flow Rate FiO2 10/21/24 19:52 98.4 81 20 143/53 97 Room Air Physical Exam Dictation Vital Signs reviewed General Appearance: Alert, oriented x 3, no acute distress, well developed, nourished. Head and Face: non-traumatic. Eyes: PERRL, pink conjunctivas, eyelid no trauma, anterior chamber with arcus senilis. Ears: Pinnas intact and no signs of trauma or erythema ear canals clear and no discharge TM no erythema Nose: No discharge, no bleeding. Oropharynx: Mouth normal, tongue pink. pharynx clear,no erythema, tonsils no exudates, no abscesses noted, mucous membrane moist Neck: Supple, non-tender, no thyromegaly, no masses, no JVD, no bruits Breast:Deferred Chest:No tenderness, no crepitus, no paradoxical movement, no retractions Lungs:Clear, well-ventilated, symmetric, no rales, no wheezing, no rhonchi, no stridor, good breath sounds bilaterally Heart: Regular rate, regular rhythm, no murmur, no gallops Vascular: no peripheral edema, Abdomen: Soft, positive bowel sounds, nondistended, no guarding, nontender, no rebound, no masses no hepatomegaly, no splenomegaly, no Macias's sign, no hernias. Rectal: Deferred Genital: Deferred Neurological: Normal speech, motor function intact, sensory function intact , upper extremities equal in strength, lower extremities equal in strain Musculoskeletal: Neck nontender, full range of motion, back nontender, full range of motion, Extremities: nontender, full range of motion Skin: Color pink, dry, no turgor, no rash, no lacerations, no abrasions, no contusions. Lymphatic: Deferred Results (Laboratory/Radiology) Laboratory/Radiology Laboratory Tests Test 10/21/24 20:18 White Blood Count 4.7 K/uL (4.8-10.8) L Red Blood Count 4.41 MIL/uL (4.00-5.50) Hemoglobin 12.9 g/dL (12.0-16.0) Hematocrit 39.0 % (36-48) Mean Corpuscular Volume 88.4 fL (79-99) Mean Corpuscular Hemoglobin 29.3 pg (27.0-33.0) Mean Corpuscular Hemoglobin Concent 33.1 g/dL (32.0-36.0) Red Cell Distribution Width 12.3 % (11.0-15.5) Platelet Count 156 K/uL (130-400) Mean Platelet Volume 8.5 fL (7.5-10.5) Immature Granulocyte % (Auto) 0.2 % (0-1) Neutrophils (%) (Auto) 56.8 % (40.0-77.0) Lymphocytes (%) (Auto) 32.7 % (21.0-51.0) Monocytes (%) (Auto) 8.2 % (3.0-13.0) Eosinophils (%) (Auto) 1.9 % (0.0-8.0) Basophils (%) (Auto) 0.2 % (0.0-5.0) Neutrophils # (Auto) 2.7 K/uL (1.8-7.7) Lymphocytes # (Auto) 1.6 K/uL (1.0-4.8) Monocytes # (Auto) 0.4 K/uL (0.1-1.0) Eosinophils # (Auto) 0.09 K/uL (0.00-0.70) Basophils # (Auto) 0.01 K/uL (0.00-0.20) Absolute Immature Granulocyte (auto 0.01 K/uL (0-1) Nucleated Red Blood Cells 0.0 % (0.0-0.19) Sodium Level 138 mmol/L (136-145) Potassium Level 3.6 mmol/L (3.5-5.1) Chloride Level 101 mmol/L (101-111) Carbon Dioxide Level 26 mmol/L (21-32) Blood Urea Nitrogen 14 mg/dL (7-18) Creatinine 0.8 mg/dL (0.5-1.0) Glomerular Filtration Rate Calc 75 mL/min (>90) Random Glucose 198 mg/dL (70-105) H Total Calcium 9.2 mg/dL (8.5-10.1) REASON: headache ORDERING PHYSICIAN: J CARLOS GRACIA PROCEDURE: HEAD WO - CT HEAD/BRAIN W/O CONTRAST CT HEAD/BRAIN W/O CONTRAST HISTORY: Headaches COMPARISON: None TECHNIQUE: Multiple sequential axial images of the head were obtained from the base of the skull through vertex. Patient was not given contrast through intravenous route. FINDINGS: The ventricles and extraventricular CSF spaces are dilated consistent with cerebral atrophy. Nonspecific white matter changes seen. There are bilateral basal ganglia calcification There is no midline shift, mass effect or herniation. No acute intracranial bleed is seen. Visualized portion of the paranasal sinuses are grossly within normal limits. IMPRESSION: 1. No acute intracranial bleed is seen. 2. Atrophy with white matter changes. CT was performed with one or more following dose reduction techniques: automated exposure control, adjustment of the mA and kv according to patient's size, or use of a iterative reconstruction technique. Labs Reviewed?: Yes ED Course ED Course Orders Procedure Category Date Status Time Cbc With Differential LAB 10/21/24 Complete 20:08 Basic Metabolic Panel LAB 10/21/24 Complete 20:08 Ct Head/Brain W/O CT 10/21/24 Resulted Contrast 20:08 0.9%Nacl 1000ml (Ns PHA 10/21/24 In Process 1000ml) 20:30 Current Medications Medications (Trade) Dose Ordered Sig/Paulina Route PRN Reason Start Time Stop Time Status Last Admin Dose Admin Sodium Chloride 1,000 ml @ 125 mls/hr ONCE ONCE IV 10/21/24 20:30 10/22/24 04:29 10/21/24 20:22 Vital Signs Date Time Temp Pulse Resp B/P (MAP) Pulse Ox O2 Delivery O2 Flow Rate FiO2 10/21/24 19:52 98.4 81 20 143/53 97 Room Air Medical Decision Making MDM The patient is a 79-year-old female with a history of diabetes hypertension who presents to the emergency department with complaints of left-sided headache onset this morning around 10:00 a.m.. Patient denies any trauma, denies any nausea or vomiting or diarrhea, denies any fevers. Denies visual changes or dizziness. Patient reports she takes Plavix and aspirin at home. Reports that she was doing some dental cleaning today and thinks that is what aggravated her headache. CBC showed no leukocytosis, no anemia, chemistry showed no electrolyte imbalance, CT abdomen showed no intracranial bleeding. Patient continues neurologically intact. In no acute distress will be discharged to follow up with PCP. Differential diagnosis: Headache, intracerebral hemorrhage, dehydration, electrolyte imbalance Need for hospitalization: Patient does not meet criteria for hospitalization. There are no social concerns with this patient. DX & DISP Disposition: Discharge Departure Impression: Primary Impression: Headache Condition: Stable Additional Instructions: Please follow up with the primary doctor in 1-2 days. If symptoms worsen please refer to ER. FOLLOW-UP WITH PRIMARY CARE PROVIDER IN 1 TO 2 DAYS. TAKE MEDICATIONS DIRECTED HERE IN THE EMERGENCY ROOM. OKAY TO CONTINUE HOME MEDICATIONS UNLESS OTHERWISE DISCUSSED DURING YOUR VISIT IN THE EMERGENCY ROOM TODAY. RETURN TO YOUR NEAREST EMERGENCY ROOM IF SYMPTOMS WORSEN OR IF THERE IS NO IMPROVEMENT. CALL 911 IF YOU NEED IMMEDIATE ASSISTANCE. TAKE TYLENOL OR MOTRIN [id number] NEEDED AND IF NO CONTRAINDICATIONS ARE PRESENT. INCREASE ORAL HYDRATION. A WOUND CULTURE OR URINE CULTURE WAS ORDERED HERE IN THE EMERGENCY ROOM DEPARTMENT PLEASE FOLLOW-UP WITH PRIMARY CARE PROVIDER AND ADVISE THEM TO GET REPEAT PORTS FROM OUR FACILITY. IF YOU HAD ANY MISTY WRAP/SPLINTS THAT WERE APPLIED HERE, PLEASE DO NOT REMOVE THEM UNTIL YOU SEE YOUR PRIMARY CARE OR SPECIALTY. Referrals: WARREN OLIVERA MD (PCP) Time of Disposition: 21:09 I have reviewed the case, and I agree with, Diagnosis and Plan J CARLOS GRACIA Oct 21, 2024 21:02
[2024-10-21 21:28] VITALS: BP 140/65; PULSE 68; RESP 16; TEMP 98.1; O2SAT 98
== END 2024-10-21 21:38 | disposition home or self-care (01) ==
LOC: EDH 19:50
DX: R51.9 Headache, unspecified (principal); E11.9 Type 2 diabetes mellitus without complications; E78.00 Pure hypercholesterolemia, unspecified; I10 Essential (primary) hypertension; Z79.02 Long term (current) use of antithrombotics/antiplatelets; Z79.82 Long term (current) use of aspirin; Z79.84 Long term (current) use of oral hypoglycemic drugs; Z79.899 Other long term (current) drug therapy; Z95.2 Presence of prosthetic heart valve
CPT/HCPCS: 99284; 96360; 70450; 80048; 85025; 36415; J7030

== ENCOUNTER 2024-11-09 18:26 | Emergency (ER) | payer OTHER ==
[~2024-11-09] VITALS: Ht 160 cm; Wt 56.7 kg
--- NOTE | 2024-11-09 18:40 | ERN ---
ED Note History of Present Illness Stated Complaint: LEG INJURY Time Seen by MD: 18:29 Dictation: PATIENT IS A 79-YEAR-OLD FEMALE COMING IN WITH LEFT MEDIAL CALF ANKLE SWELLING THAT IS APPEARS TO BE VENOUS IN NATURE. SHE STATES SHE WAS HIT IN HER LEG BY A DOOR AT HOME. THIS HAPPENED TO POPS 2 HOURS PRIOR TO ARRIVAL WHEN SHE NOTICED A SWELLING AFTER THE TRAUMA. SHE STATES SHE IS CONCERNED FOR CLOTS AND SHE HAD A VENOUS PROCEDURE BY DR. MG/[employer] IN [facility] INTACT Allergies: Coded Allergies: No Known Drug Allergies (Verified Allergy, 10/02/12) Home Meds Reported Medications Cyanocobalamin (Vitamin B-12) (Vitamin B12) 2,500 Mcg Tablet, 1000 MCG PO DAILY, TAB 09/19/24 Omeprazole (Omeprazole) 40 Mg Capsule.dr, 40 MG PO DAILY, CAP 09/19/24 Clopidogrel Bisulfate (Clopidogrel) 75 Mg Tablet, 75 MG PO DAILY, TAB 09/19/24 Aspirin (Aspirin EC) 81 Mg Tablet.dr, 81 MG PO DAILY, TAB 09/19/24 Empagliflozin/Metformin HCl (Synjardy 12.5-1,000 mg Tablet) 12.5 Mg-1,000 Mg Tablet, 1 TAB PO BID 05/22/24 Simvastatin (Simvastatin) 40 Mg Tablet, 40 MG PO HS, TAB 03/09/24 Losartan Potassium (Losartan Potassium) 50 Mg Tablet, 50 MG PO DAILY, TAB 03/09/24 Famotidine (Famotidine) 20 Mg Tablet, 20 MG PO HS, TAB 03/09/24 Ferrous Sulfate (Ferrous Sulfate) 325 Mg (65 Mg Iron) Ectab, 325 MG PO DAILY, TAB.EC 03/09/24 [amlodipine] No Conflict Check, 2.5 MG PO DAILY 03/09/24 Glimepiride (Glimepiride) 4 Mg Tablet, 4 MG PO DAILY, TAB 03/09/24 Past Medical History Past Medical History: Diabetes-Type II, High Cholesterol, Hypertension Additional Past Medical Hx: " NEEDS VALVE REPLACEMENT" Surgical History: Other Surgical History Other: VALVE REPLACEMENT Family History: CAD, DM, HTN Social History: Negative, Lives with family History: Not Applicable RN Note Reviewed/Agreed w/PFSH: Yes Review of System Dictation CONSTITUTIONAL: NEGATIVE EXCEPT FOR HPI HEAD/FACE: NEGATIVE EXCEPT FOR HPI EENT: NEGATIVE EXCEPT FOR HPI RESPIRATORY: NEGATIVE EXCEPT FOR HPI GASTROINTESTINAL/ABDOMINAL: NEGATIVE EXCEPT FOR HPI GENITOURINARY: NEGATIVE EXCEPT FOR HPI MUSCULOSKELETAL: NEGATIVE EXCEPT FOR HPI INTEGUMENTARY: NEGATIVE EXCEPT FOR HPI LEFT MEDIAL ANKLE CALF TENDERNESS SWELLING SUPERFICIAL NEUROLOGICAL/PSYCH: NEGATIVE EXCEPT FOR HPI HEMATOLOGIC/LYMPHATIC: NEGATIVE EXCEPT FOR HPI ALL SYSTEMS NEGATIVE, EXCEPT NOTED ABOVE. 13 POINT REVIEW OF SYSTEMS ASSESSED AND ALL NEGATIVE EXCEPT FOR ABOVE. Initial Vital Sign VS Vital Signs Date Time Temp Pulse Resp B/P (MAP) Pulse Ox O2 Delivery O2 Flow Rate FiO2 11/09/24 18:44 99.0 81 16 147/56 98 Room Air 0 Physical Exam Dictation VITAL SIGNS REVIEWED GENERAL APPEARANCE: ALERT, ORIENTED X 3, NO ACUTE DISTRESS, WELL DEVELOPED, NOURISHED. NO PAIN HEAD AND FACE: NON-TRAUMATIC. EYES: PERRL, PINK CONJUNCTIVAS, EYELID NO TRAUMA, ANTERIOR CHAMBER WITH ARCUS SENILIS. EARS: PINNAS INTACT AND NO SIGNS OF TRAUMA OR ERYTHEMA EAR CANALS CLEAR AND NO D ISCHARGE TM NO ERYTHEMA NOSE: NO DISCHARGE, NO BLEEDING. OROPHARYNX: MOUTH NORMAL, TONGUE PINK, PHARYNX CLEAR,NO ERYTHEMA, TONSILS NO EXUDATES, NO ABSCESSES NOTED, MUCOUS MEMBRANE MOIST NECK: SUPPLE, NON-TENDER, NO THYROMEGALY, NO MASSES, NO JVD, NO BRUITS BREAST:DEFERRED CHEST:NO TENDERNESS, NO CREPITUS, NO PARADOXICAL MOVEMENT, NO RETRACTIONS LUNGS:CLEAR, WELL-VENTILATED, SYMMETRIC, NO RALES, NO WHEEZING, NO RHONCHI, NO STRIDOR, GOOD BREATH SOUNDS BILATERALLY HEART: REGULAR RATE, REGULAR RHYTHM, NO MURMUR, NO GALLOPS VASCULAR: NO PERIPHERAL EDEMA, ABDOMEN: SOFT, POSITIVE BOWEL SOUNDS, NONDISTENDED, NO GUARDING, NONTENDER, NO REBOUND, NO MASSES NO HEPATOMEGALY, NO SPLENOMEGALY, NO MITCHELL'S SIGN, NO HERNIAS. RECTAL: DEFERRED GENITAL: DEFERRED NEUROLOGICAL: NORMAL SPEECH, MOTOR FUNCTION INTACT, SENSORY FUNCTION INTACT MUSCULOSKELETAL: NECK NONTENDER, FULL RANGE OF MOTION, BACK NONTENDER, FULL RANGE OF MOTION, EXTREMITIES: NONTENDER, FULL RANGE OF MOTION SKIN: COLOR PINK, DRY, NO TURGOR, LEFT MEDIAL ANKLE CALF SWELLING TENDERNESS FOLLOWS A LINEAR PATTERN. LYMPHATIC: DEFERRED Results (Laboratory/Radiology) Laboratory/Radiology DOPPLER ULTRASOUND OF LEFT LEG DEMONSTRATES PATIENT HAS A SUPERFICIAL HEMATOMA. NO DVT Labs Reviewed?: Yes ED Course ED Course Orders Procedure Category Date Status Time Us Venous Doppler US 11/09/24 Taken Unilateral 18:37 Vital Signs Date Time Temp Pulse Resp B/P (MAP) Pulse Ox O2 Delivery O2 Flow Rate FiO2 11/09/24 18:44 99.0 81 16 147/56 98 Room Air 0 Medical Decision Making MDM MEDICAL DISCHARGE MAKING BASED ON ULTRASOUND OF LEFT LEG TO RULE OUT DVT. NO DVT ON DOPPLER STUDY PATIENT HAS A SUPERFICIAL HEMATOMA GIVEN INFORMATION ON TREATMENT FOR HEMATOMA TO INCLUDE COOL COMPRESSES AND ELEVATION OF LEG SEE YOUR PRIMARY CARE DOCTOR DX & DISP Disposition: Discharge Departure Impression: Primary Impression: Hematoma of left lower extremity Additional Impression: Blunt trauma of left lower leg Condition: Stable Additional Instructions: FOLLOW-UP WITH PRIMARY CARE PROVIDER IN 1 TO 2 DAYS. TAKE MEDICATIONS DIRECTED HERE IN THE EMERGENCY ROOM. OKAY TO CONTINUE HOME MEDICATIONS UNLESS OTHERWISE DISCUSSED DURING YOUR VISIT IN THE EMERGENCY ROOM TODAY. RETURN TO YOUR NEAREST EMERGENCY ROOM IF SYMPTOMS WORSEN OR IF THERE IS NO IMPROVEMENT. CALL 911 IF YOU NEED IMMEDIATE ASSISTANCE. TAKE TYLENOL OR MOTRIN [id number] NEEDED AND IF NO CONTRAINDICATIONS ARE PRESENT. INCREASE ORAL HYDRATION. A WOUND CULTURE OR URINE CULTURE WAS ORDERED HERE IN THE EMERGENCY ROOM DEPARTMENT PLEASE FOLLOW-UP WITH PRIMARY CARE PROVIDER AND ADVISE THEM TO GET REPEAT PORTS FROM OUR FACILITY. IF YOU HAD ANY MISTY WRAP/SPLINTS THAT WERE APPLIED HERE, PLEASE DO NOT REMOVE THEM UNTIL YOU SEE YOUR PRIMARY CARE OR SPECIALTY. KEEP LEG ELEVATED MUCH POSSIBLE. COOL COMPRESSES TO SWELLING THREE TO 4 TIMES A DAY. SEE YOUR PRIMARY CARE DOCTOR FOR FOLLOW UP. Referrals: WARREN OLIVERA MD (PCP) Time of Disposition: 19:37 I have reviewed the case, and I agree with, Diagnosis and Plan LAURY GARCIA COTTON BROKER November 09, 2024 18:40
--- NOTE | 2024-11-09 19:54 | HMCIMG ---
US VENOUS DOPPLER UNILATERAL CLINICAL HISTORY: BLUNT TRAUMA LEFT MEDIAL CALF WITH VENOUS SWELLING. RULE OUT CLOT COMPARISON: None FINDINGS: Left lower extremity venous Doppler ultrasound was performed. The greater saphenous, common femoral, deep femoral, femoral , popliteal veins are widely patent and easily compressible with the ultrasound probe. Calf veins appear normal as well. There is normal response to compression and augmentation. Note is made of a small left medial ankle 2 x 0.6 x 1.2 cm likely small subcutaneous fat hematoma. IMPRESSION: There is no identified deep venous thrombosis. Small likely ankle hematoma.
[2024-11-09] MEDS: acetaMINOPHEN 500 MG TABLET PO ONE (19:57)
[2024-11-09 20:00] VITALS: BP 139/57; PULSE 80; RESP 16; TEMP 99; O2SAT 98
== END 2024-11-09 20:07 | disposition home or self-care (01) ==
LOC: EDH 18:26
DX: S80.12XA Contusion of left lower leg, initial encounter (principal); M79.662 Pain in left lower leg; E11.9 Type 2 diabetes mellitus without complications; E78.00 Pure hypercholesterolemia, unspecified; I10 Essential (primary) hypertension; Z79.02 Long term (current) use of antithrombotics/antiplatelets; Z79.82 Long term (current) use of aspirin; Z79.84 Long term (current) use of oral hypoglycemic drugs; Z79.899 Other long term (current) drug therapy; Z95.2 Presence of prosthetic heart valve; W22.8XXA Striking against or struck by other objects, initial encounter; Y93.89 Activity, other specified; Y92.89 Other specified places as the place of occurrence of the external cause; Y99.8 Other external cause status
CPT/HCPCS: 93971; 99284

== ENCOUNTER → 2024-12-15 | Outpatient (CLI) | payer OTHER ==
--- NOTE | 2024-12-15 13:18 | HMCIMG ---
Exam Type: TIBIA/FIBULA 2VWS LT Clinical Information: PAIN IN LEFT LEG Comparison: None Findings: The bone examination is unremarkable. No fractures or dislocations are seen. No radiopaque foreign bodies are noted. Soft tissues are preserved. IMPRESSION: Normal examination.
--- NOTE | 2024-12-15 14:01 | HMCIMG ---
Exam Type: ANKLE COMP 3VWS LT Clinical Information: PAIN IN LEFT ANKLE Comparison: None Findings: Routine views of the ankles reveal no evidence of acute fracture or dislocation. The ankle mortise is intact. There is no evidence of arthritic or inflammatory changes except for small calcaneal spurs. The soft tissues are preserved. IMPRESSION: Small calcaneal spurs.
== END | disposition home or self-care (01) ==
LOC: RAH 12:04
PROVIDERS: ATTEND Clinical Nurse Specialist Family Health
DX: M77.32 Calcaneal spur, left foot (principal); M25.572 Pain in left ankle and joints of left foot; M79.605 Pain in left leg
CPT/HCPCS: 73590; 73610

== ENCOUNTER → 2025-02-25 | Outpatient (CLI) | payer OTHER ==
--- NOTE | 2025-02-25 11:34 | HMCIMG ---
Left BREAST ULTRASOUND: COMPARISON: Prior ultrasound from 07/17/2023 is available. Finding: Real-time examination of the [right/left] breast demonstrates imaging echotexture throughout the breast. Left breast near the nipple at 1:00 there is a hypoechoic lesion with shadowing measuring 1.1 x 0.6 x 0.9 cm which has slightly increased in size. The remaining left breast has no other lesion seen.. IMPRESSION: Left breast at 1:00 there is a hypoechoic lesion with shadowing which is amenable for ultrasound-guided biopsy.. FINAL ASSESSMENT: ACR: BI-RAD -4. Suspicious: Finding(s) without all the characteristics morphology of breast cancer but indicatingadefine probability of being malignant: biopsy should be considered.
--- NOTE | 2025-02-25 11:38 | HMCIMG ---
DIGITAL left breast DIAGNOSTIC MAMMOGRAM Technique: The digital mammographic examination of both breasts in craniocaudal, mediolateral oblique views along with CAD was obtained. With coned-down compression view of the left breast and ultrasound. History: This is a 79 years year-old female 3, para3 Ab0 . Patient has no family history of breast cancer. Patient has no complaint Reference:Prior mammogram from 02/13/2024 is available.. Breast composition: Breast composition C: The breasts are heterogeneously dense, which may obscure small masses. Finding: The digital mammographic examination of both breasts in craniocaudal and mediolateral oblique view along with CAD demonstrates to be moderately heterogeneously dense. There is benign solitary macrocalcification. On the coned-down compression view of the right breast and recommend nipple region there is a density seen which is also seen on the ultrasound. I would recommend ultrasound-guided biopsy for further workup. There is benign vascular calcification suggesting of atherosclerotic changes.. There is no evidence of any dendritic mass, cluster microcalcification or architectural distortion. The retromammary fat appears to be normal. IMPRESSION: Left breast there is a density seen which is also seen and ultrasound measuring approximately 1 cm which is amenable for ultrasound-guided biopsy for histological sampling.. FINAL ASSESSMENT: ACR: BI-RAD -4. Suspicious: Finding(s) without all the characteristics morphology of breast cancer but indicatingadefine probability of being malignant: biopsy should be considered. NOTE: IF A WORK-UP OF THIS PATIENT LEADS TO A BIOPSY, PLEASE FORWARD A COPY OF THE PATHOLOGY REPORT TO OUR OFFICE REQUIRED BY [facility] EFFECTIVE APRIL 08, 1994. A NEGATIVE MAMMOGRAM SHOULD NOT PRECLUDE BIOPSY OF A CLINICALLY PALPABLE SUSPICIOUS MASS, 10% OF BREAST CANCERS ARE MAMMOGRAPHICALLY OCCULT. THIS MAMMOGRAPHY FACILITY IS FULLY ACCREDITED BY THE FOOD AND DRUG [employer]MINISTRATION (FDA). THANK YOU FOR THIS REFERRAL.
== END | disposition home or self-care (01) ==
LOC: RAH 09:20
PROVIDERS: ATTEND Internal Medicine
DX: R92.332 Mammographic heterogeneous density, left breast (principal); R92.8 Other abnormal and inconclusive findings on diagnostic imaging of breast
CPT/HCPCS: 76641; 77066

== ENCOUNTER → 2025-04-08 | Outpatient (CLI) | payer OTHER ==
[2025-04-08 08:59] LABS: INR 1.01 (0.85-1.15)
--- NOTE | 2025-04-08 10:05 | NUR ---
ULTRASOUND GUIDED LEFT BREAST NODULE BX PROCEDURE PERFORMED BY DR. NARESH COLLADO. PUNCTURE SITE LEFT BREAST AT 1 O'CLOCK AND PATIENT TOLERATED PROCEDURE WELL. SPECIMEN X3 COLLECTED AND SENT TO LAB. END OF PROCEDURE AT 0930. BIOPSY NEEDLE REMOVED- BLEEDING NOTED AND PRESSURE APPLIED. HEMOSTASIS ACHIEVED AND BAND-AID DRESSING APPLIED. DISCHARGE INSTRUCTIONS GIVEN TO PATIENT AND VERBALIZED UNDERSTANDING. PATIENT DISCHARGED IN STABLE CONDITION- AMBULATORY WITH NO C/O PAIN. MAMMOGRAPHY TO FOLLOW OF LEFT BREAST FOR CONFIRMATION OF PLACEMENT OF TISSUE MARKER.
--- NOTE | 2025-04-08 11:47 | HMCIMG ---
DIGITAL left breast DIAGNOSTIC MAMMOGRAM postultrasound-guided biopsy Technique: The digital mammographic examination of left breast in craniocaudal, mediolateral oblique views along with CAD was obtained. History: This is a 79 years year-old female 3, para3 Ab0 . Patient has no family history of breast cancer. Patient has no complaint Reference:Prior mammogram from 02/25/2025 and 02/13/2024 are available.. Breast composition: Breast composition C: The breasts are heterogeneously dense, which may obscure small masses. Finding: The digital mammographic examination of left breast in craniocaudal and mediolateral oblique view along with CAD demonstrates to be moderately heterogeneously dense due to fibroglandular stromal elements. There are scattered benign solitary macrocalcification. There is a biopsy marker at the biopsy site of the left breast at 1:00.. There is no evidence of any dendritic mass, cluster microcalcification or architectural distortion. The retromammary fat appears to be normal. IMPRESSION: Left breast biopsy marker at 1:00. To be in satisfactory position. FINAL ASSESSMENT: Post-procedure Mammogram for Marker Placement. NOTE: IF A WORK-UP OF THIS PATIENT LEADS TO A BIOPSY, PLEASE FORWARD A COPY OF THE PATHOLOGY REPORT TO OUR OFFICE REQUIRED BY [facility] EFFECTIVE APRIL 08, 1994. A NEGATIVE MAMMOGRAM SHOULD NOT PRECLUDE BIOPSY OF A CLINICALLY PALPABLE SUSPICIOUS MASS, 10% OF BREAST CANCERS ARE MAMMOGRAPHICALLY OCCULT. THIS MAMMOGRAPHY FACILITY IS FULLY ACCREDITED BY THE FOOD AND DRUG ADMINISTRATION (FDA). THANK YOU FOR THIS REFERRAL.
--- NOTE | 2025-04-08 12:26 | HMCIMG ---
PERCUTANEOUS ULTRASOUND-GUIDED BIOPSY OF left BREAST MASS with placement of a biopsy marker: CLINICAL HISTORY: This is a 79 [id number] female with left breast lesion at 1:00 measuring 1.02 x 0.6 cm. for ultrasound-guided biopsy. The risk and benefit was explained to the patient. The risks include bleeding and infection. The patient consented to the procedure. Procedure: Under ultrasound guidance left breast lesion at 1:00 was localized. After sterile prep and drape, 1% Xylocaine was used for local anesthetic. Using a 14-gauge Bard gun a total of 4 core biopsy was obtained. The specimen was sent for histology and cell block. A biopsy marker was placed at the biopsy bed. Patient tolerated procedure well. IMPRESSION: FINAL ASSESSMENT: Post-procedure Mammogram for Marker Placement. 1. PERCUTANEOUS ULTRASOUND-GUIDED BIOPSY OF left BREAST WITH SPECIMENS SENT FOR HISTOLOGY AND CELL BLOCK. THE PATIENT TOLERATED PROCEDURE WELL. PATHOLOGY REPORT IS PENDING. 2. PATIENT IS TO HAVE A POST BIOPSY MARKER PLACEMENT UNILATERAL left BREAST MAMMOGRAM.
== END ==
LOC: RAH 07:24
PROVIDERS: ATTEND Clinical Nurse Specialist Family Health
DX: R92.8 Other abnormal and inconclusive findings on diagnostic imaging of breast (principal); N60.12 Diffuse cystic mastopathy of left breast; I25.10 Atherosclerotic heart disease of native coronary artery without angina pectoris; I12.9 Hypertensive chronic kidney disease with stage 1 through stage 4 chronic kidney disease, or unspecified chronic kidney disease; E11.22 Type 2 diabetes mellitus with diabetic chronic kidney disease; N18.2 Chronic kidney disease, stage 2 (mild); E78.2 Mixed hyperlipidemia; K21.9 Gastro-esophageal reflux disease without esophagitis; E11.40 Type 2 diabetes mellitus with diabetic neuropathy, unspecified; I35.0 Nonrheumatic aortic (valve) stenosis; M19.90 Unspecified osteoarthritis, unspecified site; Z90.710 Acquired absence of both cervix and uterus; Z83.3 Family history of diabetes mellitus
CPT/HCPCS: 19083; 77065; 85610; 85730; 36415; 88305; A4215 ×2; A4648

== ENCOUNTER → 2025-07-06 | Outpatient (CLI) | payer OTHER ==
--- NOTE | 2025-07-06 23:57 | HMCIMG ---
STUDY: VENOUS DOPPLER ULTRASOUND OF THE RIGHT LOWER EXTREMITY CLINICAL INFORMATION: Right leg pain. TECHNIQUE: Grayscale, color Doppler, and spectral Doppler ultrasound evaluation of the deep venous system of the right lower extremity was performed. COMPARISON: None provided. FINDINGS: RIGHT LOWER EXTREMITY DEEP VEINS: The right common femoral, femoral, popliteal, and visualized calf veins demonstrate normal compressibility with no intraluminal echogenic thrombus identified. Color Doppler shows normal venous flow with appropriate augmentation and respiratory variation where assessed. No evidence of deep venous obstruction or occlusion is seen. SUPERFICIAL VEINS / SOFT TISSUES: Visualized superficial veins are patent without definite intraluminal thrombus. Surrounding soft tissues show no focal fluid collection or abnormal soft tissue mass. IMPRESSION: * No sonographic evidence of deep venous thrombosis in the right lower extremity from the common femoral vein through the visualized calf veins. /Gold
--- NOTE | 2025-07-07 11:03 | HMCIMG ---
STUDY: ARTERIAL DUPLEX ULTRASOUND OF BOTH LOWER EXTREMITIES CLINICAL INFORMATION: Bilateral leg pain. TECHNIQUE: Grayscale, color Doppler, and spectral Doppler evaluation of the common femoral, superficial femoral, popliteal, and tibial arteries of both lower extremities was performed with peak systolic velocities recorded where obtainable. COMPARISON: Unilateral lower extremity arterial Doppler ultrasound from 09/19/2024 at 19:48. FINDINGS: RIGHT LOWER EXTREMITY ARTERIES: Common femoral artery peak systolic velocity is reported at approximately 232 cm/s with biphasic waveform, corresponding to a hemodynamically significant (approximately 5080%) stenosis by duplex criteria. The profunda (likely PRA) demonstrates a peak systolic velocity of approximately 226 cm/s with triphasic waveform, also in the 5080% stenosis range. Proximal, mid, and distal superficial femoral artery velocities are reported at approximately 122, 117, and 89 cm/s, respectively, with biphasic waveforms and without marked focal velocity jump to suggest high-grade stenosis. Proximal and distal popliteal artery velocities are approximately 124 and 93 cm/s with biphasic waveforms and without duplex evidence of critical stenosis or occlusion. Posterior tibial and distal anterior tibial arteries demonstrate biphasic waveforms without reported focal velocity elevation; no distal occlusion is described. Severe atherosclerotic calcifications are present along the arterial koenig. LEFT LOWER EXTREMITY ARTERIES: Common femoral artery peak systolic velocity is approximately 187 cm/s with triphasic waveform, without a clear duplex-defined high-grade stenosis. Superficial femoral artery segments (proximal, mid, distal) demonstrate reported peak systolic velocities of approximately 13, 90, and 113 cm/s, respectively, with predominantly biphasic waveforms and no discrete focal velocity doubling to indicate critical stenosis (noting some variability that may reflect technique or flow state). Proximal popliteal artery peak systolic velocity is approximately 181 cm/s with biphasic waveform, consistent with a 2049% stenosis; distal popliteal velocity is approximately 100 cm/s with biphasic waveform. Posterior tibial, anterior tibial (distal), and dorsalis pedis arteries demonstrate biphasic waveforms with reported velocities (GENER[employer]CH[employer]ING AGENT 33 cm/s; FLORECITA distal 81 cm/s; dorsalis pedis 135 cm/s) and no duplex evidence of distal occlusion. Severe atherosclerotic calcifications are again noted. WAVEFORMS AND COMPARISON: Overall, waveforms are predominantly biphasic with preserved distal flow bilaterally. No occluded major named artery is described. Compared with the prior unilateral arterial Doppler study from 09/19/2024, direct [id number] velocity comparison is limited by differences in technique and laterality; however, there is no clear new duplex evidence of major arterial occlusion or critical limb ischemia. IMPRESSION: * Hemodynamically significant right common femoral and profunda femoris artery stenoses (duplex-estimated 5080% range) with preserved distal biphasic waveforms and no documented distal occlusion. Findings are compatible with inflow peripheral arterial disease; recommend aggressive cardiovascular risk-factor modification (antiplatelet therapy, statin, blood pressure and glycemic control, smoking cessation) and consideration of vascular surgery or interventional radiology consultation if lifestyle-limiting claudication, rest pain, or tissue loss is present. * [id number] left popliteal artery stenosis (approximately 2049% range by duplex criteria) with preserved distal biphasic waveforms and no sonographic evidence of critical stenosis or acute arterial occlusion; management should be guided by symptoms and noninvasive hemodynamic testing. * Severe bilateral atherosclerotic calcifications with overall preserved distal run-off and no duplex evidence of major occlusive disease; anklebrachial indices and/or toe pressures may be useful to quantify global limb perfusion and to guide medical versus interventional management in the setting of leg pain and suspected peripheral arterial disease. /[place]
== END | disposition home or self-care (01) ==
LOC: RAH 12:26
PROVIDERS: ATTEND Internal Medicine
DX: I70.203 Unspecified atherosclerosis of native arteries of extremities, bilateral legs (principal); M79.604 Pain in right leg; I77.1 Stricture of artery
CPT/HCPCS: 93925; 93971